=== PATIENT | female | born 1940 | race Asian ===

== ENCOUNTER 2016-11-13 13:01 | Outpatient (CLI) | payer MEDICARE, OTHER | END 2016-11-13 13:02 | disposition home or self-care (01) | DX: I67.82 Cerebral ischemia (principal); G44.89 Other headache syndrome; G31.9 Degenerative disease of nervous system, unspecified ==

== ENCOUNTER 2016-11-30 11:47 | Outpatient (CLI) | payer MEDICARE, OTHER | END 2016-11-30 11:48 | disposition home or self-care (01) | DX: Z12.31 Encounter for screening mammogram for malignant neoplasm of breast (principal) ==

== ENCOUNTER 2017-03-29 12:15 | Outpatient (CLI) | payer MEDICARE, OTHER ==
--- NOTE | 2017-03-30 07:33 | XRAY Report ---
LUMBAR SPINE, THREE VIEWS: 03/29/2017 CLINICAL HISTORY: Intermittent pain. Patient had back surgery 10 years ago. FINDINGS: Mild vascular calcification is noted in the abdominal aorta. Prominent anterior spurring with bridging osteophytes are seen in the lumbar spine and lower T-spine. Mild disk space narrowing is noted at L1-2 and L4-5. Mild disk space narrowing is noted at L5-S1. Mild narrowing is seen in the SI joints. No significant change is seen as compared to 07/30/2010. IMPRESSION: 1. NO SIGNIFICANT CHANGE IS NOTED COMPARED TO 07/30/2010 WITH A MODERATE DEGREE OF OSTEOARTHRITIS NOTED IN THE LUMBAR SPINE ONCE AGAIN SEEN. 2. MILD OSTEOARTHRITIS IS NOTED IN THE SI JOINTS. JOB #: [id number] EXT JOB #:[id number]
== END 2017-03-29 12:16 | disposition home or self-care (01) ==
LOC: DI 12:15
PROVIDERS: ATTEND Internal Medicine
DX: M47.896 Other spondylosis, lumbar region (principal); M47.898 Other spondylosis, sacral and sacrococcygeal region
CPT/HCPCS: 72100

== ENCOUNTER 2017-12-13 14:05 | Outpatient (CLI) | payer MEDICARE, OTHER ==
--- NOTE | 2017-12-14 09:59 | Mammography Report ---
DIGITAL SCREENING MAMMOGRAM: 12/13/2017 COMPARISON: 11/30/2016, 08/07/2015, 08/15/2013, and 09/03/2011. TECHNIQUE: Bilateral CC and MLO projections were obtained of the breasts. FINDINGS: There are scattered fibroglandular densities. There is no dominant mass, architectural distortion, skin thickening, suspicious clustered microcalcifications, or obvious interval change. IMPRESSION: NEGATIVE. BIRADS CATEGORY 1 - NEGATIVE. SUGGEST RETURN TO ROUTINE SCREENING IN 12 MONTHS. STANDARD QUALIFYING STATEMENTS: 1. This examination was reviewed with the aid of Computed-Aided Detection (CAD) . 2. A negative or benign imaging report should not delay biopsy if clinically suspicious findings are present. Consider surgical consultation if warranted. More than 5 % of cancers are not identified by imaging. 3. Dense breasts may obscure an underlying neoplasm. TD: 12/14/2017 09:58 JEANA
== END 2017-12-13 14:06 | disposition home or self-care (01) ==
LOC: DI 14:05
PROVIDERS: ATTEND Internal Medicine
DX: Z12.31 Encounter for screening mammogram for malignant neoplasm of breast (principal)
CPT/HCPCS: 77067

== ENCOUNTER 2018-04-28 09:42 | Outpatient (CLI) | payer MEDICARE, OTHER ==
--- NOTE | 2018-04-28 11:26 | XRAY Report ---
Procedure Date: 04/28/2018 Accession Number: [id number] / [id number] Procedure: XR - Thoracic Spine 2 View CPT Code: FULL RESULT: EXAM: THORACIC SPINE RADIOGRAPHY EXAM DATE: 04/28/2018 10:20 AM. CLINICAL HISTORY: BACKACHE LOWER/HTN. COMPARISON: None. TECHNIQUE: 2 views. FINDINGS: Alignment: Normal. No spondylolisthesis or scoliosis. Bones: No fractures or bone lesions. Disks: Scattered diffuse osteophytes Soft Tissues: Normal. The visualized lungs and cardiomediastinal silhouette are normal. IMPRESSION: Moderate DJD RADIA
--- NOTE | 2018-04-28 11:31 | XRAY Report ---
Procedure Date: 04/28/2018 Accession Number: [id number] / [id number] Procedure: XR - Chest 2 View X-Ray CPT Code: 85651 FULL RESULT: EXAM: CHEST RADIOGRAPHY EXAM DATE: 04/28/2018 10:20 AM. CLINICAL HISTORY: Back pain COMPARISON: None. TECHNIQUE: 2 views. FINDINGS: Lungs/Pleura: No focal opacities evident. No pleural effusion. No pneumothorax. Normal volumes. Mediastinum: Normal heart size. There is thoracic aortic calcification. Mild tortuosity. Other: None. IMPRESSION: No acute intrathoracic plain film abnormality. RADIA
--- NOTE | 2018-04-28 11:33 | XRAY Report ---
Procedure Date: 04/28/2018 Accession Number: [id number] / [id number] Procedure: XR - Lumbar Spine 2 View CPT Code: FULL RESULT: EXAM: LUMBOSACRAL SPINE RADIOGRAPHY EXAM DATE: 04/28/2018 10:20 AM. CLINICAL HISTORY: BACKACHE LOWER/HTN. COMPARISONS: None. TECHNIQUE: 3 views. FINDINGS: Alignment: Normal. No spondylolisthesis or scoliosis. Bones: Five cbq-ibo-[id number] lumbar vertebral bodies are present. Anterior wedging L1, L2, L3, L4. Disks: Osteophyte formation diffusely. At L4-L5, L5-S1 disk space narrowing. Facets: L4-L5, L5-S1 facet arthropathy. Sacroiliac Joints: Unremarkable. Soft Tissues: Normal. The visualized bowel gas pattern is normal. IMPRESSION: 1. Anterior compressions of L1-L4. 2. Moderate to severe DJD RADIA
--- NOTE | 2018-04-28 16:33 | Ultrasound Report ---
Procedure Date: 04/28/2018 Accession Number: [id number] / [id number] Procedure: US - Aorta Screening CPT Code: FULL RESULT: EXAM: AORTIC DOPPLER ULTRASOUND EXAM DATE: 04/28/2018 10:54 AM. CLINICAL HISTORY: Hypertension. COMPARISON: None. TECHNIQUE: Real-time sonographic imaging of retroperitoneal vascular structures, including color-flow, Doppler flow and spectral analysis was performed by the campground cleaning attendant. Multiple sales utility representative static images were saved for review. FINDINGS: Aorta: The abdominal aorta was adequately visualized. No evidence for abdominal aortic aneurysm. Aorta: Proximal: Sagittal PA: 2.7 cm. Mid: Transverse: 2.4 x 2.6 cm. Distal: Transverse: 1.5 x 1.5 cm. Caliber WNL: Yes. Iliacs: Right Iliac: Transverse: 1.1 x 1.1 cm. Left Iliac: Transverse: 1.2 x 1.3 cm. Iliac Vessels: The visualized proximal common iliac arteries are normal in caliber. Other: None. IMPRESSION: Normal. No abdominal aortic aneurysm. RADIA
== END 2018-04-28 09:43 | disposition home or self-care (01) ==
LOC: DI 09:42
PROVIDERS: ATTEND Internal Medicine
DX: I10 Essential (primary) hypertension (principal); M47.896 Other spondylosis, lumbar region; M48.56XA Collapsed vertebra, not elsewhere classified, lumbar region, initial encounter for fracture; M47.894 Other spondylosis, thoracic region
CPT/HCPCS: 71046; 72070; 72100; 76706

== ENCOUNTER 2018-10-28 09:55 | Outpatient (CLI) | payer MEDICARE, OTHER ==
--- NOTE | 2018-10-28 11:41 | CT Report ---
Reason: MEMORY IMPAIRMENT Procedure Date: 10/28/2018 Accession Number: [id number] / [id number] Procedure: CT - Head W/O CPT Code: FULL RESULT: EXAM: CT HEAD EXAM DATE: 10/28/2018 10:57 AM. CLINICAL HISTORY: MEMORY IMPAIRMENT. COMPARISON: None. TECHNIQUE: Multiaxial CT images were obtained from the foramen magnum to the vertex. Reformats: Sagittal and coronal. IV contrast: None. In accordance with CT protocol optimization, one or more of the following dose reduction techniques were utilized for this exam: automated exposure control, adjustment of mA and/or KV based on patient size, or use of iterative reconstructive technique. FINDINGS: Parenchyma: No intraparenchymal hemorrhage. No evidence of mass, midline shift, or CT findings of acute infarction. Hagen-white differentiation is distinct. Diffuse chronic microangiopathic white matter changes are evident. Extraaxial Spaces: Normal for age. No subdural or epidural collections identified. Ventricles: The ventricles and cortical sulci are enlarged, consistent with age-related tissue loss. Sinuses and orbits: Imaged paranasal sinuses, orbits, and mastoids show no significant abnormality. Bones: No evidence of fracture or calvarial defect. Other: None. IMPRESSION: Generalized age-related chronic changes without evidence of acute intracranial abnormality. RADIA
== END 2018-10-28 09:56 | disposition home or self-care (01) ==
LOC: LAB 09:55 → DI 09:56
PROVIDERS: ATTEND Internal Medicine
DX: R41.3 Other amnesia (principal)
CPT/HCPCS: 36415; 70450; 82565

== ENCOUNTER 2019-01-20 14:01 | Outpatient (CLI) | payer MEDICARE, OTHER ==
--- NOTE | 2019-01-24 14:27 | DEXA Report ---
Reason: DISORDER OF BONE, UNSPECIFIED Procedure Date: 01/20/2019 Accession Number: [id number] / [id number] Procedure: DEX - Dexa Spine and/or Hip CPT Code: FULL RESULT: EXAM: Dexa Spine and/or Hip DATE: 01/20/2019 2:31 PM CLINICAL HISTORY: DISORDER OF BONE, UNSPECIFIED TECHNIQUE: Dual energy x-ray absorptiometry (DXA) was performed on a [employer] System. Regions measured are the AP Spine, femoral neck, and if needed forearm. COMPARISON: None. In accordance with the International Society for Clinical Densitometry (ISCD) guidelines, data from previous exams may be reanalyzed using current recommendations and techniques. This is done to allow a more accurate basis for comparison with the current study. FINDINGS: The data for the lumbar spine is as follows: BMD (g/cm/cm) T-SCORE Z-SCORE REGION L1 1.327 1.6 3.6 L2 1.302 0.9 2.8 L3 1.354 1.3 3.3 L4 1.448 2.1 4.0 TOTAL 1.365 1.5 3.5 NOTE: All evaluable vertebrae are used for classification The data for the hip is as follows: BMD (g/cm/cm) T-SCORE Z-SCORE REGION Neck 0.943 -0.7 1.6 TOTAL 1.072 0.5 2.7 NOTE: The femoral neck or total proximal femur, whichever is lowest, is used for classification. DXA RESULTS SUMMARY: Spine SCAN DATE A[age] BMD CHANGE VS CHANGE VS PREVIOUS PREVIOUS % [birth year][age]20/2019 [age] 1.365 -0.079* -5.5* [birth year]2016 [age] 1[age]444 * Denotes significant change at the 95% confidence level. Denotes dissimilar scan types or analysis methods. DXA RESULTS SUMMARY: Hip SCAN DATE AGE BMD CHANGE VS CHANGE VS PREVIOUS PREVIOUS % [birth year][age][birth year]2019 [age] 1.072 -0.043* -3.9* [birth year]2016 [age] 1.115 * Denotes significant change at the 95% confidence level. Denotes dissimilar scan types or analysis methods. IMPRESSION: THE WHO CLASSIFICATION BASED ON THE INTERNATIONAL REFERENCE STANDARD IS NORMAL. THE FRACTURE RISK IS NOT INCREASED. RECOMMENDATION: Patients with diagnosis of osteoporosis or osteopenia should have regular bone mineral density assessment. For those eligible for Medicare, routine testing is allowed once every 2 years. Testing frequency can be increased for patients who have rapidly progressing disease or for those who are receiving medical therapy to restore bone mass. COMMENT: World Health Organization (WHO) definitions for osteoporosis and osteopenia: NORMAL BMD: T-score at -1.0 or higher, fracture risk is low OSTEOPENIA BMD: T-score between -1.0 and -2.5, fracture risk is increased. OSTEOPOROSIS BMD: T-score at -2.5 or lower, fracture risk is high. National Osteoporosis Foundation recommends: 1. Obtain adequate dietary calcium (at least 1200 mg per day) and vitamin D (400-800 international units per day). 2. Participate, as appropriate, in regular weightbearing and muscle-strengthening exercise. 3. Avoid tobacco use and reduce alcohol and caffeine intake. 4. For more detailed information see the website at www.NOF.org.
== END 2019-01-20 14:02 | disposition home or self-care (01) ==
LOC: DI 14:01
PROVIDERS: ATTEND Internal Medicine
DX: M85.80 Other specified disorders of bone density and structure, unspecified site (principal); M89.9 Disorder of bone, unspecified
CPT/HCPCS: 77080

== ENCOUNTER 2019-01-20 14:03 | Outpatient (CLI) | payer MEDICARE, OTHER ==
--- NOTE | 2019-01-23 09:27 | Mammography Report ---
Reason: ANNUAL SCREENING Procedure Date: 01/20/2019 Accession Number: [id number] / [id number] Procedure: [facility] - Screening Mammo Dig Bilat CPT Code: FULL RESULT: EXAM: Screening Mammo Dig Bilat DATE: 01/20/2019 3:16 PM CLINICAL HISTORY: Routine screening. No reported personal history of breast cancer. Family history breast cancer in daughter age 64. TECHNIQUE: (B) - Bilateral CC and MLO views were obtained. COMPARISON: None PARENCHYMAL PATTERN: (A) - The breasts demonstrate scattered fibroglandular densities bilaterally. FINDINGS: Bilateral breasts There are no suspicious masses, calcifications, or areas of distortion. IMPRESSION: Negative examination. BI-RADS category 1. RECOMMENDATION: (ANNUAL) - Recommend routine annual screening mammography. BI-RADS CATEGORY: (1) - Negative. STANDARD QUALIFYING STATEMENTS: 1. This examination was not reviewed with the aid of Computer-Aided Detection (CAD). 2. A negative or benign imaging report should not preclude biopsy if clinically suspicious findings are present. 3. Dense breasts may obscure an underlying neoplasm. 4. This examination was reviewed without the aid of 3D breast imaging (tomosynthesis).
== END 2019-01-20 14:04 | disposition home or self-care (01) ==
LOC: DI 14:03
PROVIDERS: ATTEND Internal Medicine
DX: Z12.31 Encounter for screening mammogram for malignant neoplasm of breast (principal); Z80.3 Family history of malignant neoplasm of breast
CPT/HCPCS: 77067

== ENCOUNTER 2019-06-08 12:57 | Outpatient (CLI) | payer MEDICARE, OTHER | END 2019-06-08 12:58 | disposition home or self-care (01) | LOC: RT 12:57 | PROVIDERS: ATTEND Internal Medicine | DX: J45.998 Other asthma (principal) | CPT/HCPCS: 94010 ==

== ENCOUNTER 2019-06-12 14:40 | Outpatient (CLI) | payer MEDICARE, OTHER ==
--- NOTE | 2019-06-12 15:10 | XRAY Report ---
Reason: ASTHMA Procedure Date: 06/12/2019 Accession Number: [id number] / [id number] Procedure: XRN - Chest 2 View X-Ray CPT Code: 78690 FULL RESULT: EXAM: CHEST RADIOGRAPHY EXAM DATE: 06/12/2019 02:53 PM. CLINICAL HISTORY: ASTHMA. COMPARISON: CHEST 2 VIEW 04/28/2018 9:57 AM. TECHNIQUE: 2 views. FINDINGS: Lungs/Pleura: No focal opacities evident. No pleural effusion. No pneumothorax. Normal volumes. No hyperinflation. No change. Mediastinum: Heart and mediastinal contours are unremarkable. Other: None. IMPRESSION: Normal examination with no significant change. No evidence of hyperinflation or pneumonia. RADIA
== END 2019-06-12 14:41 | disposition home or self-care (01) ==
LOC: DI.N 14:40
PROVIDERS: ATTEND Internal Medicine
DX: J45.998 Other asthma (principal)
CPT/HCPCS: 71046

== ENCOUNTER 2019-09-12 10:38 | Outpatient (CLI) | payer MEDICARE, OTHER ==
--- NOTE | 2019-09-12 11:44 | CT Report ---
Reason: PAIN IN JOINT, LOW BACK PAIN, HEADACHES Procedure Date: 09/12/2019 Accession Number: [id number] / [id number] Procedure: CT - CERVICAL SPINE WO CPT Code: Final Report FULL RESULT: EXAM: CT CERVICAL SPINE WITHOUT CONTRAST DATE: 09/12/2019 11:03 AM. HISTORY: Pain in joint, low back pain, headaches. COMPARISONS: LUMBAR SPINE W/O 09/12/2019 10:53 AM LUMBAR SPINE 2 VIEW 04/28/2018 9:57 AM images and report from [facility]. TECHNIQUE: Thin-section axial images were acquired of the cervical spine without contrast. Post-processing: Coronal and sagittal reformats. Other: None. In accordance with CT protocol optimization, one or more of the following dose reduction techniques were utilized for this exam: automated exposure control, adjustment of mA and/or KV based on patient size, or use of iterative reconstructive technique. FINDINGS: Alignment: There is reversal of the normal cervical lordotic curvature. No fractures. Bones: Osteopenic changes. Some calcification of the posterior longitudinal ligament is noted. Interspace Levels/Facets: C1-C2: Some osteoarthritic changes are seen anteriorly. No stenosis. C2-C3: Disk osteophyte complex calcification. No stenosis. C3-C4: Some disk osteophyte complex calcification. Series 5 image 46. No stenosis. C4-C5: Disk space height loss, broad-based disk bulge. Prominent facets. Mild central stenosis, mild left foraminal stenosis. C5-C6: Disk space height loss, marginal arthrosis is present, broad-based disk bulge. Calcification of posterior longitudinal ligament. Mild central stenosis. AP diameter of the bony canal is 8.6 mm. C6-C7: Disk space height loss, marginal arthrosis. Hypertrophic left facet. Old. C7-T1: Unremarkable. Musculature: Normal. No fatty atrophy. Other: The paravertebral and prevertebral soft tissues are unremarkable. The lung apices are clear. IMPRESSION: 1. No fractures. Some reversal of the normal cervical lordotic curvature is seen. 2. C4-C5 shows a broad-based disk bulge and mild central stenosis. Mild left foraminal stenosis. 3. C5-C6 shows disk space height loss and marginal arthrosis. Broad-based disk bulge. Mild central stenosis. Neural foramina are normal. 4. C6-C7 shows mild disk space height loss, no stenosis. RADIA
--- NOTE | 2019-09-12 12:16 | CT Report ---
Reason: PAIN IN JOINT, LOW BACK PAIN, HEADACHES Procedure Date: 09/12/2019 Accession Number: [id number] / [id number] Procedure: CT - LUMBAR SPINE WO CPT Code: Final Report FULL RESULT: EXAM: CT LUMBAR SPINE WITHOUT CONTRAST EXAM DATE: 09/12/2019 11:03 AM. CLINICAL HISTORY: Pain in joint, low back pain, headaches. COMPARISONS: LUMBAR SPINE 2 VIEW 04/28/2018 9:57 AM LUMBAR SPINE 2 VIEW 03/29/2017 12:31 PM. TECHNIQUE: Thin-section axial images were acquired of the lumbar spine from T12 to S1 without contrast. Post-processing: Coronal and sagittal reformats. Other: None. In accordance with CT protocol optimization, one or more of the following dose reduction techniques were utilized for this exam: automated exposure control, adjustment of mA and/or KV based on patient size, or use of iterative reconstructive technique. FINDINGS: Alignment: No scoliosis or spondylolisthesis. Bones: Five jle-osx-ugvmnpu lumbar vertebral bodies are present. No fractures or bone lesions. Disk Levels/Facets: T12-L1: Disk space height loss, some calcification of the right disk margin. Mild right lateral central stenosis. Prominent facets. No foraminal narrowing. L1-L2: Large calcified disk extrusion centrally. Series 3 image 50. Significant mass effect on the central canal. The AP diameter from the posterior aspect of the lamina into the calcified disk is 6 mm. Severe central stenosis. No foraminal stenosis. L2-L3: Circumferential disk calcification, broad-based bulge and prominent facets. Moderate central stenosis. Moderate bilateral foraminal stenosis. L3-L4: Circumferential disk space height loss and marginal calcification. Previous undersurface left hemilaminotomy. Series 4 image 91. Moderate central stenosis. Mild to moderate bilateral foraminal stenosis. L4-L5: Focal left paracentral disk extrusion is calcified, with moderate to severe central stenosis. Series 3 image 106. There is severe bilateral foraminal stenosis also seen. Prominent facets. L5-S1: Some disk calcification posteriorly. No central stenosis. Mild bilateral foraminal stenosis. Musculature: Moderate fatty atrophy of the multifidus muscle is seen. Other: The visualized retroperitoneum is unremarkable. IMPRESSION: 1. No scoliosis or listhesis. No fractures. Moderate fatty atrophy of the multifidus muscle is present. 2. T12-L1 shows mild right lateral central stenosis secondary to some calcification of the disk margin. No foraminal stenosis. 3. L1-L2 shows a large central calcified disk extrusion creating severe central stenosis. No foraminal stenosis. 4. L2-L3 shows circumferential disk calcification and moderate central stenosis and moderate bilateral foraminal stenosis. 5. L3-L4 shows circumferential disk space height loss, previous undersurface left hemilaminotomy. Moderate central stenosis and mild to moderate bilateral foraminal stenosis. 6. L4-L5 shows a focal left paracentral calcified disk extrusion. Moderate to severe central stenosis. Severe bilateral foraminal stenosis. 7. L5-S1 shows some disk calcification. No central stenosis and mild bilateral foraminal stenosis. RADIA
--- NOTE | 2019-09-12 12:16 | CT Report ---
Reason: PAIN IN JOINT, LOW BACK PAIN, HEADACHES Procedure Date: 09/12/2019 Accession Number: [id number] / [id number] Procedure: CT - THORACIC SPINE WO CPT Code: Final Report FULL RESULT: EXAM: CT THORACIC SPINE WITHOUT CONTRAST EXAM DATE: 09/12/2019 11:03 AM. CLINICAL HISTORY: Pain in joint, low back pain, headaches. COMPARISONS: None. TECHNIQUE: Thin-section axial images were acquired of the thoracic spine from C7 to L1 without contrast. Post-processing: Coronal and sagittal reformats. Other: None. In accordance with CT protocol optimization, one or more of the following dose reduction techniques were utilized for this exam: automated exposure control, adjustment of mA and/or KV based on patient size, or use of iterative reconstructive technique. FINDINGS: Alignment: 9 degrees of dextroscoliosis between T3-T4 and T11-T12. No listhesis. Bones: No fracture or bone lesion. Disk Levels/Facets: Multilevel disk space height loss throughout. C7-T1: Unremarkable. T1-T2: Unremarkable. T2-T3: Unremarkable. T3-T4: Unremarkable. T4-T5: Unremarkable. T5-T6: Unremarkable. T6-T7: Unremarkable. T7-T8: Unremarkable. T8-T9: Some calcification of the posterior disk bulge. No central stenosis or foraminal stenosis. T9-T10: Broad-based disk bulge with some calcification. Mild central stenosis and mild bilateral foraminal stenosis. T10-T11: Calcification of a right-sided disk protrusion/extrusion. Mild to moderate central stenosis. No foraminal stenosis. T11-T12: Unremarkable. T12-L1: Right-sided annular tear and focal calcification of the disk osteophyte complex. Moderate right foraminal stenosis. Left neural foramina and central canal are normal. Musculature: Mild fatty atrophy of the multifidus muscle is seen. Other: None. IMPRESSION: 1. 9 degrees of dextroscoliosis between T3-T4 and T11-T12. No listhesis. Multilevel disk space height loss throughout. No fractures. 2. T8-T9 shows some calcification posterior disk bulge. No central or foraminal stenosis. 3. T9-T10 shows a broad based disk bulge with calcification and mild central stenosis and mild bilateral foraminal stenosis. 4. T10-T11 shows a right-sided disk protrusion/extrusion which is calcified. Mild to moderate central stenosis. No foraminal narrowing. 5. T12-L1 shows a right-sided annular tear and focal calcification creating moderate right foraminal stenosis. Left neural foramina is normal. Central canal also normal. RADIA
== END 2019-09-12 10:39 | disposition home or self-care (01) ==
LOC: DI 10:38
PROVIDERS: ATTEND Internal Medicine
DX: M50.321 Other cervical disc degeneration at C4-C5 level (principal); M48.02 Spinal stenosis, cervical region; M47.812 Spondylosis without myelopathy or radiculopathy, cervical region; M51.26 Other intervertebral disc displacement, lumbar region; M51.35 Other intervertebral disc degeneration, thoracolumbar region; M48.061 Spinal stenosis, lumbar region without neurogenic claudication; M51.36 Other intervertebral disc degeneration, lumbar region; M51.34 Other intervertebral disc degeneration, thoracic region; M48.04 Spinal stenosis, thoracic region
CPT/HCPCS: 72125; 72128; 72131

== ENCOUNTER 2020-02-14 01:50 | Emergency (ER) | payer MEDICARE, OTHER ==
--- NOTE | 2020-02-14 01:51 | ED Physician Documentation ---
History of Present Illness - Stated complaint Stated Complaint: ABD PX/NECK PX - History obtained from History obtained from: Patient, Family (Female who presents with her with a chief complaint plaint to include abdominal pain, constipation, some shortness of breath and myalgias to include neck muscle spasms. The patient and her spouse report that she has had similar symptoms off and on for the last year but they became progressively worse tonight so he brought her in for further evaluation the patient spouse did try treating her for constipation with MiraLAX as well as a fleets enema however tonight she was complaining of worsening abdominal pain and was brought to the ER for evaluation.Fevers and headaches are denied.) Review of Systems Constitutional: reports: Myalgias Eyes: reports: Reviewed and negative Ears: reports: Reviewed and negative Nose: reports: Reviewed and negative Throat: reports: Reviewed and negative Cardiac: reports: Reviewed and negative Respiratory: reports: Dyspnea GI: reports: Abdominal Pain, Constipation : reports: Reviewed and negative Skin: reports: Reviewed and negative Musculoskeletal: reports: Reviewed and negative Neurologic: reports: Reviewed and negative Psychiatric: reports: Reviewed and negative Endocrine: reports: Reviewed and negative Immunocompromised: reports: Reviewed and negative PD PAST MEDICAL HISTORY - Past Medical History Cardiovascular: Hypertension, High cholesterol - Past Surgical History 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 - Present Medications Home Medications: Ambulatory Orders Medication Instructions Recorded Confirmed Aspirin [Aspir 81] 81 mg PO DAILY 08/13/13 08/13/13 Cholecalciferol (Vitamin D3) 2,000 unit PO DAILY 08/13/13 08/13/13 [Vitamin D] Hydrochlorothiazide 25 mg PO DAILY 08/13/13 08/13/13 Lisinopril 10 mg PO BID 08/13/13 08/13/13 Wali Red 08/13/13 08/13/13 Montelukast Sodium [Singulair] 10 mg PO DAILY 08/13/13 08/13/13 Multivitamin [Animal Chews] 1 each PO 08/13/13 08/13/13 diazePAM [Valium] 5 mg PO TID PRN #7 tablet 02/14/20 - Allergies Allergies/Adverse Reactions: Allergies Allergy/AdvReac Type Severity Reaction Status Date / Time doxycycline Allergy Severe unknown Verified 08/13/13 11:50 niacin Allergy Intermediate unknown Verified 08/13/13 11:50 [From Niaspan Extended-Release] - Social History Does the pt smoke?: No Smoking Status: Never smoker Does the pt drink ETOH?: No Does the pt have substance abuse?: No - Immunizations Immunizations are current?: Yes PD ED PE NORMAL - Vitals Vital signs reviewed: Yes - General General: Alert and oriented X 3, No acute distress, Well developed/nourished - HEENT HEENT: Atraumatic, PERRL, Moist mucous membranes, Pharynx benign - Neck Neck: Supple, no meningeal sign, No bony TTP, No adenopathy, Thyroid normal, No JVD, No bruit, Other (Muscle spasms noted in bilateral posterior cervical paraspinal muscles. No midline tenderness to palpation no midline step-offs or deformities no meningeal signs) - Cardiac Cardiac: RRR, No murmur - Respiratory Respiratory: Clear bilaterally - Abdomen Abdomen: Other (There is no midline abdominal pulsatile mass the abdomen soft its diffusely tender to palpation there is no ecchymosis no CVA tenderness there is diminished bowel sounds) - Back Back: No CVA TTP, No spinal TTP - Derm Derm: Normal color, Warm and dry, No rash - Extremities Extremities: No deformity, No tenderness to palpate, Normal ROM s pain, No edema, No calf tenderness / cord - Neuro Neuro: Alert and oriented X 3, 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, No motor deficit, No sensory deficit, Normal speech - Psych Psych: Normal mood, Normal affect Results - Vitals Vitals: Vital Signs - 24 hr 02/14/20 02/14/20 02:01 04:27 Temperature 36.5 C Heart Rate 75 66 Respiratory 18 16 Rate Blood Pressure 171/92 H 156/90 H O2 Saturation 100 100 Oxygen O2 Source Room air - EKG (time done) 02:44 Rate: Other (no stemi) - Labs Labs: Laboratory Tests 02/14/20 02/14/20 02/14/20 02:30 02:40 02:40 WBC 4.5 L RBC 3.26 L Hgb 10.9 L Hct 31.7 L MCV 97.2 MCH 33.4 H MCHC 34.4 RDW 12.3 Plt Count 195 MPV 9.0 Neut # (Auto) 2.9 Lymph # (Auto) 1.4 L [place] # (Auto) 0.2 Eos # (Auto) 0.0 Baso # (Auto) 0.0 Absolute Nucleated RBC 0.00 Nucleated RBC % 0.0 PT 11.4 INR 1.0 APTT 29.3 Sodium Potassium Chloride Carbon Dioxide Anion Gap BUN Creatinine Estimated GFR (MDRD) Glucose Lactic Acid Calcium Total Bilirubin AST ALT Alkaline Phosphatase Total Creatine Kinase Troponin I High Sens Total Protein Albumin Globulin Albumin/Globulin Ratio Lipase Urine Color YELLOW Urine Clarity CLEAR Urine pH 8.5 H Ur Specific [place] 1.015 Urine Protein TRACE Urine Glucose (UA) NEGATIVE Urine Ketones 15 H Urine Occult Blood TRACE-INTA Urine Nitrite NEGATIVE Urine Bilirubin NEGATIVE Urine Urobilinogen 0.2 (NORMAL) Ur Leukocyte Esterase NEGATIVE Ur Microscopic Review NOT INDICATED Urine Culture Comments NOT INDICATED 02/14/20 02/14/20 02/14/20 02:40 02:40 02:40 WBC RBC Hgb Hct MCV MCH MCHC RDW Plt Count MPV Neut # (Auto) Lymph # (Auto) [place] # (Auto) Eos # (Auto) Baso # (Auto) Absolute Nucleated RBC Nucleated RBC % PT INR APTT Sodium 127 L Potassium 3.7 Chloride 91 L Carbon Dioxide 24 Anion Gap 12.0 BUN 18 Creatinine 0.9 Estimated GFR (MDRD) 60 L Glucose 108 H Lactic Acid < 0.3 L Calcium 8.8 Total Bilirubin 0.5 AST 22 ALT 26 Alkaline Phosphatase 67 Total Creatine Kinase 124 Troponin I High Sens 4.7 Total Protein 7.6 Albumin 4.1 Globulin 3.5 Albumin/Globulin Ratio 1.2 Lipase 37 Urine Color Urine Clarity Urine pH Ur Specific [place] Urine Protein Urine Glucose (UA) Urine Ketones Urine Occult Blood Urine Nitrite Urine Bilirubin Urine Urobilinogen Ur Leukocyte Esterase Ur Microscopic Review Urine Culture Comments PD MEDICAL DECISION MAKING - ED course Complexity details: reviewed results, re-evaluated patient, considered differential (Diverticulitis AAA, constipation, obstruction, dehydration, acute kidney injury, ACS, Cystitis), d/w patient, d/w family (05:00 am Patient reexamined she is well-appearing and she has a steady gait clear speech chest x- ray shows possible infiltrate in either lingula or lower lobe of the left lung base patient denies any cough or shortness of breath or any wheezing her sodium is noted to be low at 127 which is new for her she is on a diuretic she does have good follow-up with his primary care provider today. I dad did have an extensive conversation with the patient and her spouse in regards to admission for inpatient evaluation versus outpatient observation and treatment ultimately is agreed upon that this patient will be discharged with close follow-up she is noted to have some cervical muscle spasms that was improved with low-dose Valium will provide her with a prescription for low-dose Valium for the next 1 to [address] scan of the abdomen and pelvis were also were ordered for this patient shows no acute abnormality identified) Departure - Departure Disposition: 01 Home, Self Care Clinical Impression: Hyponatremia, Muscle spasms of neck Constipation Qualifiers: Constipation type: unspecified constipation type Qualified Code(s): K59.00 - Constipation, unspecified Condition: Stable Instructions: Hyponatremia Dc, ED Spasm Muscle Follow-Up: Romy Singh MD [Primary Care Provider] - 02/14/20 Prescriptions: diazePAM [Valium] 5 mg PO TID PRN #7 tablet PRN Reason: Spasms Comments: Call your primary care provider today to schedule follow-up.
[2020-02-14] MEDS ORDERED: SODIUM CHLORIDE 0.9% 1,000 ML IV STA (02:38)
[2020-02-14] MEDS ORDERED: diazePAM INJ 5 MG/ML SYRINGE IVP STA (02:38)
[2020-02-14 02:48] LABS: BASOPHILS % (AUTO) 0.2 %; EOSINOPHILS % (AUTO) 0.4 %; HGB - HEMOGLOBIN 10.9 g/dL (12.0-16.0); LYMPHOCYTES # (AUTO) 1.4 10^3/uL (1.5-3.5); LYMPHOCYTES % (AUTO) 30.5 %; MEAN CORPUSCULAR HEMOGLOBIN 33.4 pg (27.0-31.0); MEAN CORPUSCULAR HGB CONC 34.4 g/dL (32.0-36.0); MEAN CORPUSCULAR VOLUME 97.2 fL (81.0-99.0); MONOCYTES # (AUTO) 0.2 10^3/uL (0.0-1.0); MONOCYTES % (AUTO) 4.9 %; NEUTROPHILS # (AUTO) 2.9 10^3/uL (1.5-6.6); NEUTROPHILS % (AUTO) 63.8 %; PLT - PLATELET COUNT 195 10^3/uL (130-450); RED BLOOD COUNT 3.26 10^6/uL (4.20-5.40); RED CELL DISTRIBUTION WIDTH 12.3 % (12.0-15.0); WHITE BLOOD COUNT 4.5 x10^3/uL (4.8-10.8)
[2020-02-14 02:52] LABS: BILIRUBIN,URINE NEGATIVE (NEGATIVE); CLARITY,URINE CLEAR (CLEAR); GLUCOSE, URINE (UA) NEGATIVE (NEGATIVE); KETONES,URINE (UA) 15 mg/dL (NEGATIVE); LEUKOCYTE ESTERASE, URINE NEGATIVE (NEGATIVE); NITRITE,URINE NEGATIVE (NEGATIVE); OCCULT BLOOD,URINE TRACE-INTA (NEGATIVE); PH,URINE 8.5 PH (5.0-7.5); PROTEIN,URINE TRACE mg/dL (NEGATIVE); UROBILINOGEN,URINE 0.2 (NORMAL) E.U./dL (NORMAL)
[2020-02-14] MEDS ORDERED: IOVERSOL 320 100 ML VIAL IVP ONE ×2 (02:52→03:52)
[2020-02-14 02:54] LABS: PT - PROTHROMBIN TIME 11.4 secs (9.9-12.6)
[2020-02-14 03:01] LABS: PARTIAL THROMBOPLASTIN TIME 29.3 secs (24.9-33.3)
[2020-02-14 03:03] LABS: ALBUMIN 4.1 g/dL (3.2-5.5); ALBUMIN/GLOBULIN RATIO 1.2 (1.0-2.2); BILIRUBIN,TOTAL 0.5 mg/dL (0.2-1.0); CALCIUM 8.8 mg/dL (8.5-10.3); CREATININE 0.9 mg/dL (0.4-1.0); TOTAL PROTEIN 7.6 g/dL (6.7-8.2)
[2020-02-14 05:52] VITALS: BP 155/92
--- NOTE | 2020-02-14 08:28 | XRAY Report ---
Reason: sob Procedure Date: 02/14/2020 Accession Number: [id number] / [id number] Procedure: XR - Chest 1 View X-Ray CPT Code: 42534 Final Report FULL RESULT: PROCEDURE: Chest 1 View X-Ray INDICATIONS: sob TECHNIQUE: One view of the chest was acquired. COMPARISON: 06/12/2019 FINDINGS: Surgical changes and devices: None. Lungs and pleura: There is loss of distinction along the lateral aspect of left hemidiaphragm new since previous study. No significant pleural effusion or pneumothorax. Right lung is clear. Mediastinum: Mediastinal contours appear normal. Heart size is normal. Bones and chest wall: No suspicious bony lesions. Overlying soft tissues appear unremarkable. IMPRESSION: Subtle opacity involving the lateral aspect of the left lung base which may represent trace pleural effusion/thickening versus small developing infiltrate. Clinical and radiographic follow-up is recommended. Agree with preliminary report. Reviewed by: Adalid Stone MD on 02/14/2020 8:26 AM PDT Approved by: Adalid Stone MD on 02/14/2020 8:26 AM PDT Station ID: [id number]
--- NOTE | 2020-02-14 09:10 | CT Report ---
Reason: abd pain Procedure Date: 02/14/2020 Accession Number: [id number] / [id number] Procedure: CT - Abdomen/Pelvis W CPT Code: Final Report FULL RESULT: PROCEDURE: Abdomen/Pelvis W INDICATIONS: abd pain CONTRAST: IV CONTRAST: Optiray 320 ml: *NO PO CONTRAST TECHNIQUE: After the administration of oral and intravenous contrast, 5 mm thick sections acquired from the diaphragms to the symphysis. 5 mm thick coronal and sagittal reformats were acquired. For radiation dose reduction, the following was used: automated exposure control, adjustment of mA and/or kV according to patient size. COMPARISON: None. FINDINGS: Image quality: Excellent. ABDOMEN: Lung bases: Bibasilar dependent atelectasis is seen. Heart size is normal. Solid organs: Liver and spleen are normal in size. 6 mm hypodensity involving left lobe of liver is seen and is too small to characterize. Normal enhancement of spleen is seen. Gallbladder is within normal limits. Biliary system is non dilated. Pancreas enhances normally. No adrenal nodules. Kidneys demonstrate normal size and enhancement, without hydronephrosis. Peritoneum and bowel: Bowel loops demonstrate normal wall thickness and caliber. No free fluid or air. There is mild fecal stasis in the colon. Nodes and vessels: No retroperitoneal or mesenteric adenopathy by size criteria. Aorta and inferior vena cava are normal in size. Extensive atherosclerotic disease throughout the abdominal aorta is seen. Miscellaneous: No ventral hernias. PELVIS: Genitourinary: Bladder wall thickness is normal. Miscellaneous: No inguinal hernias or adenopathy. Patient is status post hysterectomy. Bones: No suspicious bony lesions. No vertebral body compression fractures. Straightening of normal lumbar lordosis is seen with degenerative disc disease throughout visualized lower thoracic spine and lumbar spine. IMPRESSION: 1. Mild constipation. No bowel obstruction. No bowel wall thickening. No free fluid or free air. 2. Subtle 6 mm hypodensity in left lobe of liver likely represent benign process such as hepatic cyst or hemangioma. 3. Extensive atherosclerotic disease in the abdominal aorta. No abdominal aortic aneurysm or gross dissection. 4. Degenerative disc disease in lower thoracic spine and lumbar spine. Agree with the preliminary report. Reviewed by: Adalid Stone MD on 02/14/2020 9:08 AM PDT Approved by: Adalid Stone MD on 02/14/2020 9:08 AM PDT Station ID: [id number]
== END 2020-02-14 05:26 | disposition home or self-care (01) ==
LOC: ED 01:50
DX: E87.1 Hypo-osmolality and hyponatremia (principal); M62.838 Other muscle spasm; M54.2 Cervicalgia; K59.00 Constipation, unspecified; I10 Essential (primary) hypertension; Z79.82 Long term (current) use of aspirin
CPT/HCPCS: 36415; 71045; 74177; 80053; 81003; 82550; 83605; 83690; 84484; 85025; 85610; 85730; 93005; 96361; 96374; 99284; Q9967; 81001; 87086

== ENCOUNTER 2020-05-23 13:08 | Outpatient (CLI) | payer MEDICARE, OTHER | END 2020-05-23 13:09 | disposition home or self-care (01) | LOC: COV 13:08 | PROVIDERS: ATTEND Family Medicine | DX: R19.7 Diarrhea, unspecified (principal); Z20.828 Contact with and (suspected) exposure to other viral communicable diseases ==

== ENCOUNTER 2020-07-09 14:14 | Outpatient (CLI) | payer MEDICARE, OTHER ==
--- NOTE | 2020-07-09 16:55 | XRAY Report ---
PROCEDURE: Lumbar Spine 2 View INDICATIONS: LOW BACK PAIN TECHNIQUE: 2 views of the lumbar spine were acquired. COMPARISON: CT dated 09.12.19 FINDINGS: Bones: 5 [id number] vertebrae are present. There is mild, grade 1 retrolisthesis of L1 on L2, L2 on L3, L3 on L4, and L4 on L5. Facet hypertrophy throughout the mid and lower lumbar spine. No bebeto tebral body compression fractures. No suspicious bony lesions. Multilevel disc space narrowing and endplate osteophytes. Soft tissues: Overlying bowel gas pattern is normal. No suspicious soft tissue calcifications. IMPRESSION: Multilevel degenerative disc and facet disease. No acute fracture. No osseous lesion. If symptoms and/or clinical suspicion for pathology continue, further assessment with repeat plain film s, or advanced imaging (e.g., CT, MRI, or bone scan) is recommended for further assessment. Reviewed by: Gabriele Robbins MD on 07/09/2020 4:53 PM PDT Approved by: Gabriele Robbins MD on 07/09/2020 4:53 PM PDT Station ID: [id number]
== END 2020-07-09 14:15 | disposition home or self-care (01) ==
LOC: DI 14:14
PROVIDERS: ATTEND Internal Medicine
DX: M43.16 Spondylolisthesis, lumbar region (principal); M47.816 Spondylosis without myelopathy or radiculopathy, lumbar region; M51.36 Other intervertebral disc degeneration, lumbar region
CPT/HCPCS: 72100

== ENCOUNTER 2020-11-26 11:57 | Outpatient (CLI) | payer MEDICARE, OTHER ==
[2020-11-26] MEDS ORDERED: IOPAMIDOL-300 50 ML VIAL ONE (12:23)
[2020-11-26] MEDS ORDERED: IOVERSOL 320 100 ML VIAL IVP ONE (13:52)
[2020-11-26] MEDS ORDERED: IOPAMIDOL-300 50 ML VIAL PO ONE (13:56)
--- NOTE | 2020-11-26 17:41 | CT Report ---
PROCEDURE: Abdomen/Pelvis W INDICATIONS: ABD PAIN, EPICGASTRIC PAIN CONTRAST: IV CONTRAST: Optiray 320 ml: 100 PO CONTRAST: Isovue 300 ml50 TECHNIQUE: After the administration of weight appropriate dose of intravenous contrast, 5 mm thick sections acqu ired from the diaphragms to the symphysis. 5 mm thick coronal and sagittal reformats were acquired. For radiation dose reduction, the following was used: automated exposure control, adjustment of mA and/or kV according to patient size. COMPARISON: 02/14/2020. FINDINGS: Image quality: Excellent. ABDOMEN: Lung bases: Minimal bibasilar atelectasis.. Heart size is normal. Solid organs: Liver and spleen are normal in size and enhancement. Stable subcentimeter lateral segm ent left hepatic lobe hypodensity (image 17, series 3). Gallbladder appears partially decompressed. C omment bladder wall not well visualized and possibly thickened. This may be due to combination of inc omplete distention and motion artifact. There is persistent, stable mild prominence of the common colton e duct as well as the main pancreatic duct. Biliary system is non dilated. Pancreas enhances normal ly. No adrenal nodules. Kidneys demonstrate normal size and enhancement, without hydronephrosis. Peritoneum and bowel: Bowel loops demonstrate normal wall thickness and caliber. No free fluid or a ir. Moderate amount of fecal burden seen throughout the imaged colon. Nodes and vessels: No retroperitoneal or mesenteric adenopathy by size criteria. Aorta and inferior vena cava are normal in size. Extensive atherosclerotic calcifications of the abdominal aorta witho ut aneurysmal dilatation. Miscellaneous: No ventral hernias. PELVIS: Genitourinary: Bladder wall thickness is normal for degree of distention.. Miscellaneous: No inguinal hernias or adenopathy. Bones: No suspicious bony lesions. No acute vertebral body compression fractures. Moderate multile obi spondylosis of the imaged spine. IMPRESSION: 1. Moderate amount of fecal material seen throughout the imaged colon which may represent constipatio n. No evidence for obstruction. 2. Stable subcentimeter hypodensity in the lateral segment of the left hepatic lobe which again may r epresent a hepatic cyst versus hemangioma. 3. Partially decompressed gallbladder with suggestion of wall thickening which may be related to comb ination of patient motion artifact and incomplete distention. Recommend correlating for clinical symp toms of cholecystitis. Consider further evaluation with right upper quadrant ultrasound if there are clinical findings of acute cholecystitis. 4. Persistent, stable mild prominence of the common bile duct and main pancreatic duct. Recommend cor relation with laboratory evaluation. 5. Multilevel lumbar spondylosis. 6. Extensive atherosclerosis. Reviewed by: Aleksey Redd MD on 11/26/2020 5:40 PM PDT Approved by: Aleksey Redd MD on 11/26/2020 5:40 PM PDT Station ID: [id number]
== END 2020-11-26 11:58 | disposition home or self-care (01) ==
LOC: DI 11:57
PROVIDERS: ATTEND Internal Medicine
DX: R10.13 Epigastric pain (principal); M47.816 Spondylosis without myelopathy or radiculopathy, lumbar region
CPT/HCPCS: 74177; Q9967

== ENCOUNTER 2021-08-16 14:29 | Outpatient (CLI) | payer MEDICARE, OTHER ==
--- NOTE | 2021-08-16 19:15 | Ultrasound Report ---
PROCEDURE: Retroperitoneal INDICATIONS: RENAL INSUFFICIENCY TECHNIQUE: Real-time scanning was performed of the retroperitoneal organs, with image documentation. COMPARISON: CT abdomen pelvis 11/26/2020. FINDINGS: Evaluation limited due to bowel gas, body habitus, and patient difficulty with breath holds. Kidneys: Right kidney measures 10.0 cm long; left kidney measures 10.2 cm long. Right renal cortica l thickness is 1.3 cm; left renal cortical thickness is 1.1 cm. Renal cortex appears normal in echog enicity with preserved corticomedullary differentiation. No hydronephrosis. No definite renal mass id entified. Bladder: The urinary bladder was not visualized. Patient voided prior to the study. IMPRESSION: 1. No evidence of hydronephrosis. 2. Bilateral mild renal cortical thinning. Reviewed by: Brennon Herrera MD on 08/16/2021 6:14 PM [facility] Approved by: Brennon Herrera MD on 08/16/2021 6:14 PM [facility] Station ID: [id number]
== END 2021-08-16 14:30 | disposition home or self-care (01) ==
LOC: DI 14:29
PROVIDERS: ATTEND Urology
DX: N28.9 Disorder of kidney and ureter, unspecified (principal); N26.1 Atrophy of kidney (terminal)

== ENCOUNTER 2021-10-21 22:29 | Outpatient (CLI) | payer MEDICARE, OTHER | END 2021-10-21 22:30 | disposition short-term general hospital (02) | LOC: EMS 22:29 | DX: R47.81 Slurred speech (principal); R53.1 Weakness; R29.810 Facial weakness; R40.0 Somnolence | CPT/HCPCS: A0425; A0429 ==

== ENCOUNTER → 2022-08-16 | Outpatient (CLI) | payer MEDICARE, OTHER | END | disposition EMS.NT | LOC: EMS 13:48 | DX: Z03.89 Encounter for observation for other suspected diseases and conditions ruled out (principal) ==

== ENCOUNTER 2022-08-25 13:02 | Outpatient (CLI) | payer MEDICARE, OTHER ==
--- NOTE | 2022-08-26 11:55 | Mammography Report ---
BILATERAL DIGITAL SCREENING MAMMOGRAM: 08/25/2022 CLINICAL: Family history of breast cancer. Routine screening. Comparison is made to exams dated: 01/20/2019 mammogram, 12/13/2017 mammogram, 08/07/2015 mammogram, an d 08/15/2013 mammogram - [facility]. There are scattered areas of fibroglandular density in both breasts (category b / 25%-50% glandular t issue). There is new diffuse skin thickening and possible subtle diffuse trabecular thickening in both breast s. No significant masses, calcifications, or other findings are seen in either breast. Scattered vascul ar calcifications. IMPRESSION: INCOMPLETE: NEEDS ADDITIONAL IMAGING EVALUATION There is new diffuse skin thickening and possible subtle diffuse trabecular thickening in both breast s. Findings may be related to a systemic process such as pulmonary edema. Neoplastic etiology such as inflammatory carcinoma not completely excluded. Recommend clinical correlation and diagnostic mammog suzi with possible ultrasound. Based on the Tyrer Cuzick model (a risk assessment model) the patients lifetime risk is 0.3% and her 10 year risk is 0.0%. According to the ACR, ACS, and NCCN guidelines, an annual breast MRI exam rayne g with mammogram is recommended if the patients lifetime risk is 20% or greater. This exam was interpreted at Station ID: [id number]. NOTE: For mammograms, a report in lay terms will be sent to the patient. Approximately 15% of breast malignancies will not be visualized mammographically. In the management of a palpable breast mass, a negative mammogram must not discourage biopsy of a clinically suspicious lesion. Electronically Signed By: Aleksey Redd M.D. aty/:08/25/2022 19:35:59 ACR BI-RADS Category 0: Incomplete 3340F PARENCHYMAL PATTERN: (A) - The breast(s) demonstrate(s) scattered fibroglandular densities. BI-RADS CATEGORY: (0) - 0 Mammo and [place] [id number] Immediate follow-up LATERALITY: (B)
== END 2022-08-25 13:03 | disposition home or self-care (01) ==
LOC: DI.N 13:02
PROVIDERS: ATTEND Internal Medicine
DX: Z12.31 Encounter for screening mammogram for malignant neoplasm of breast (principal); R92.8 Other abnormal and inconclusive findings on diagnostic imaging of breast; Z80.3 Family history of malignant neoplasm of breast

== ENCOUNTER 2022-09-03 12:27 | Outpatient (CLI) | payer MEDICARE, OTHER ==
--- NOTE | 2022-09-09 10:42 | Mammography Report ---
BILATERAL DIGITAL DIAGNOSTIC MAMMOGRAM 3D/2D: 09/03/2022 CLINICAL: Patient returns to evaluate bilateral breast skin thickening. Comparison is made to exams dated: 08/25/2022 mammogram, 01/20/2019 mammogram, 12/13/2017 mammogram, mammogram, and 08/15/2013 mammogram - [facility]. There are scattered areas of fibroglandular density in both breasts (category b / 25%-50% glandular t issue). Bilateral breast skin thickening is unchanged. No mass, asymmetry, or architectural distortion. No zarco spicious microcalcifications. IMPRESSION: PROBABLY BENIGN Unchanged bilateral breast skin thickening and trabecular coarsening. This is likely reflective of a system process such as congestive heart failure. The likelihood of bilateral inflammatory breast canc er involving the skin with no mass is extremely low, however correlation with physical exam to exclud e redness or excoriation is requested. Correlation with BNP and history of other CHF symptoms is also requested. Punch biopsy could be performed if clinical suspicion is high based on the physical exam. Otherwise, return to annual screening recommended. Based on the Tyrer Cuzick model (a risk assessment model) the patients lifetime risk is 0.3% and her 10 year risk is 0.0%. According to the ACR, ACS, and NCCN guidelines, an annual breast MRI exam rayne g with mammogram is recommended if the patients lifetime risk is 20% or greater. This exam was interpreted at Station ID: [id number]. NOTE: For mammograms, a report in lay terms will be sent to the patient. Approximately 15% of breast malignancies will not be visualized mammographically. In the management of a palpable breast mass, a negative mammogram must not discourage biopsy of a clinically suspicious lesion. Electronically Signed By: Mark Zacarias M.D. jr/:09/03/2022 13:52:29 ACR BI-RADS Category 3: Probably benign 3343F PARENCHYMAL PATTERN: (A) - The breast(s) demonstrate(s) scattered fibroglandular densities. BI-RADS CATEGORY: (3) - 3 Unspecified - other [id number] return to screening LATERALITY: (B)
== END 2022-09-03 12:28 | disposition home or self-care (01) ==
LOC: DI 12:27
PROVIDERS: ATTEND Internal Medicine
DX: R92.8 Other abnormal and inconclusive findings on diagnostic imaging of breast (principal); R23.4 Changes in skin texture; N64.89 Other specified disorders of breast

== ENCOUNTER 2022-09-29 15:19 | Outpatient (CLI) | payer MEDICARE, OTHER ==
[2022-09-29 15:46] LABS: CALCIUM 8.8 mg/dL (8.5-10.3); CREATININE 1.5 mg/dL (0.4-1.0)
--- NOTE | 2022-09-29 20:27 | XRAY Report ---
PROCEDURE: Chest 2 View X-Ray INDICATIONS: EDEMA TECHNIQUE: 2 views of the chest were acquired. COMPARISON: CXR 02/14/2020. CT thoracic spine 09/12/2019. FINDINGS: Surgical changes and devices: Clips in the left upper quadrant. Lungs and pleura: No pleural effusions or pneumothorax. Lungs are clear. Mediastinum: Mediastinal contours are unchanged. Aorta appears prominent. Heart size is within norm al limits. Bones and chest wall: No suspicious bony abnormalities. Soft tissues appear unremarkable. IMPRESSION: No acute cardiopulmonary abnormality. Thoracic aortic aneurysm is similar on chest x-ray. Consider CT chest with IV contrast for further ev aluation. Reviewed by: Austin Serna MD on 09/29/2022 8:26 PM PST Approved by: Austin Serna MD on 09/29/2022 8:26 PM PST Station ID: [id number]
== END 2022-09-29 15:20 | disposition home or self-care (01) ==
LOC: DI 15:19
PROVIDERS: ATTEND Internal Medicine
DX: R60.9 Edema, unspecified (principal); G45.9 Transient cerebral ischemic attack, unspecified; I50.9 Heart failure, unspecified; D64.9 Anemia, unspecified; Z79.899 Other long term (current) drug therapy; I11.0 Hypertensive heart disease with heart failure
CPT/HCPCS: 36415; 80048; 83880

== ENCOUNTER 2022-09-29 15:21 | Outpatient (CLI) | payer MEDICARE, OTHER | END 2022-09-29 15:22 | disposition home or self-care (01) | LOC: RT 15:21 | PROVIDERS: ATTEND Internal Medicine | DX: I50.9 Heart failure, unspecified (principal); R60.9 Edema, unspecified; G45.9 Transient cerebral ischemic attack, unspecified | CPT/HCPCS: 93005 ==

== ENCOUNTER 2022-11-18 07:11 | Outpatient (CLI) | payer MEDICARE, OTHER ==
--- NOTE | 2022-11-18 12:53 | Ultrasound Report ---
PROCEDURE: Abdomen Complete INDICATIONS: LLQ ABD PAIN TECHNIQUE: Real-time scanning was performed of the abdominal and retroperitoneal organs, with image documentatio n. COMPARISON: None. FINDINGS: Liver: There is normal in size and echotexture. There is a left hepatic simple cyst measuring 1.1 cm. The main portal vein measures 0.9 cm in diameter Gallbladder: Sonolucent without gallbladder wall thickening or pericholecystic fluid Biliary ducts: Intrahepatic bile ducts are non-dilated. Extrahepatic bile duct caliber measures 6 m m. Normal is 6-7 mm or less in diameter, or 10 mm or less post-cholecystectomy. Pancreas: Visualized portions of the pancreas are sonographically normal. Spleen: Spleen is normal in size and homogeneous in echotexture. Kidneys: Kidneys are normal in size and echotexture. Right kidney measures 10.1 cm long; left kidne y measures 10.3 cm long. No hydronephrosis or nephrolithiasis. No solid masses. Aorta: Visualized aorta is normal in caliber at less than 3 cm. Iliacs: Proximal common iliac arteries are normal in caliber at less than 2.5 cm. IVC: Intrahepatic inferior vena cava is patent. Miscellaneous: No free abdominal fluid. IMPRESSION: Unremarkable ultrasound of the abdomen. Incidental small left hepatic simple cyst Reviewed by: Gregor Bowie MD on 11/18/2022 11:52 AM [facility] Approved by: Gregor Bowie MD on 11/18/2022 11:52 AM [facility] Station ID: [id number]
== END 2022-11-18 07:12 | disposition home or self-care (01) ==
LOC: DI 07:11
PROVIDERS: ATTEND Internal Medicine
DX: R10.32 Left lower quadrant pain (principal)

== ENCOUNTER 2022-12-15 13:17 | Emergency (ER) | payer MEDICARE, OTHER ==
--- NOTE | 2022-12-15 15:01 | CT Report ---
PROCEDURE: HEAD WO INDICATIONS: fall, head/neck pain TECHNIQUE: Noncontrast 4.5 mm thick angled axial sections acquired from the foramen magnum to the vertex. For r adiation dose reduction, the following was used: automated exposure control, adjustment of mA and/or kV according to patient size. COMPARISON: 10/28/2018 FINDINGS: Image quality: Good CSF spaces: Basal cisterns are patent. Lateral ventricles are symmetric. Volume: Vascular calcifications. Periventricular white matter disease is commonly seen with chronic m icroangiopathy. Volume loss is present. These findings are moderate. Brain: No intracranial hemorrhage. Hagen-white differentiation is grossly maintained. Craniofacial structures: No displaced fracture. Orbits are unremarkable. Right scalp soft tissue cont usion. Partially visualized prior sinusitis sequelae. IMPRESSION: No acute intracranial abnormality. Right scalp soft tissue contusion. Reviewed by: Ancelmo Loya MD on 12/15/2022 3:00 PM PDT Approved by: Ancelmo Loya MD on 12/15/2022 3:00 PM PDT Station ID: [id number]
--- NOTE | 2022-12-15 15:06 | ED Physician Documentation ---
PD HPI Fall - Stated complaint Stated Complaint: FALL/HIT HEAD - Chief complaint Chief Complaint: Neuro - History obtained from History obtained from: Patient, Family (spouse) - History of Present Illness Mechanism of injury: Tripped, Lost balance Fall distance: Standing position (her says the patient can lose blaance easily due to her Parkinsons type illness. She lost balance and tripped forward, striking right head on door framing. no loc. did subsequently complain of some numbness/weakness feeling right arm. concerned about brain injury/bleeding.) Where injury occurred: Home Timing - onset: Today Injury(ies) location: Head Associated symptoms: Weakness (right arm). 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 - Present Medications Home Medications: Ambulatory Orders Medication Instructions Recorded Confirmed Cholecalciferol (Vitamin D3) 2,000 unit PO DAILY 08/13/13 08/13/13 [Vitamin D] Wali Red 08/13/13 08/13/13 Montelukast Sodium [Singulair] 10 mg PO DAILY 08/13/13 08/13/13 Amlodipine Besylate [Norvasc] 04/18/20 Carbidopa/Levodopa 25/100 [Sinemet 04/18/20 25 mg/100 mg] Colesevelam HCl [Welchol] 04/18/20 Omeprazole 20 mg PO 04/18/20 Acetaminophen [Tylenol] 500 mg PO ONCE 12/15/22 12/15/22 Cholecalciferol (Vitamin D3) 12/15/22 [Vitamin D3] Hyoscyamine Sulfate [Levsin-Sl] 0.125 mg SL 12/15/22 Memantine [Namenda] 12/15/22 Rasagiline [Azilect] 1 mg PO 12/15/22 12/15/22 Spironolactone [Aldactone] 25 mg PO 12/15/22 hydroCHLOROthiazide 50 mg PO 12/15/22 [Hydrochlorothiazide] - Allergies Allergies/Adverse Reactions: Allergies Allergy/AdvReac Type Severity Reaction Status Date / Time doxycycline Allergy Severe unknown Verified 12/15/22 13:29 niacin Allergy Intermediate unknown Verified 12/15/22 13:29 [From Niaspan Extended-Release] - Social History Does the pt smoke?: No Smoking Status: Never smoker Does the pt drink ETOH?: No Does the pt have substance abuse?: No - Immunizations Immunizations are current?: Yes PD ED PE NORMAL - Vitals Vital signs reviewed: Yes - General General: Alert and oriented X 3, Well developed/nourished, Other (slightly limited as she speaks more estonian than trinidadian, but still able to communicate adequately with . ) - HEENT HEENT: Other (right scalp with some local swelling and tenderness. ) - Neck Neck: Supple, no meningeal sign, No bony TTP - Respiratory Respiratory: Clear bilaterally, Other (no chestwall tenderness) - Abdomen Abdomen: Soft, Non tender - Derm Derm: Normal color, Warm and dry - Extremities Extremities: Normal ROM s pain (somewhat stiff movements, but able to have rom of arms/shoulders/legs and is ambulatory without pain. ) - Neuro Neuro: No motor deficit, No sensory deficit Results - Vitals Vitals: Vital Signs - 24 hr 12/15/22 12/15/22 13:22 15:21 Temperature 36.8 C Heart Rate 85 71 Respiratory 14 14 Rate Blood Pressure 134/88 H 157/96 H O2 Saturation 100 99 Oxygen O2 Source Room air - Rads (name of study) head CT Relevant Findings:: Prelim report reviewed, EMP independent interpretation of test (no ICH nor acute findings. ), See rad report No standard instances Relevant Findings:: Prelim report reviewed (multilevel degenerative changes; no fractures. ), EMP independent interpretation of test, See rad report PD Medical Decision Making - ED course Complexity details: considered differential (fell and struck head on doorjam. not forceful injury but some head pain and had some right arm pain/weakness following. can be concerned about ich causing some effect on motor. can get ct. ), d/w patient, d/w family (spouse) Departure - Departure Disposition: 01 Home, Self Care Clinical Impression: Accidental fall Qualifiers: Encounter type: initial encounter Qualified Code(s): W19.XXXA - Unspecified fall, initial encounter Head contusion Qualifiers: Encounter type: initial encounter Contusion of head detail: scalp Qualified Code(s): S00.03XA - Contusion of scalp, initial encounter Condition: Stable Record reviewed to determine appropriate education?: Yes Follow-Up: Romy Singh MD [Primary Care Provider] - Comments: The head CT scan does not show any signs of bleeding, swelling, fractures within the brain compartment. The soft tissue swelling can be seen. The CT of the neck shows some arthritic changes but no obvious fractures. Continue with ice or cool towels to the scalp as needed for swelling. Tylenol every 4-6 hours if needed for pains. Continue other usual medicines. At this point there does not appear to be any significant injury from the fall. Activity as tolerated. Discharge Date/Time: 12/15/22 15:34
[2022-12-15] MEDS ORDERED: ACETAMINOPHEN 325 MG TABLET PO STA (15:12)
[2022-12-15 15:22] VITALS: BP 157/96
--- NOTE | 2022-12-15 15:24 | CT Report ---
PROCEDURE: CERVICAL SPINE WO INDICATIONS: fall, head/neck pain TECHNIQUE: Noncontrast 3 mm thick sections acquired from the skull base to the T4 level. Sagittal and coronal r eformats were then constructed. For radiation dose reduction, the following was used: automated exp osure control, adjustment of mA and/or kV according to patient size. COMPARISON: CT cervical spine 09/12/2019 FINDINGS: Image quality: Excellent. Bones: No fractures or dislocations. Visualized superior ribs are intact. Multilevel degenerative changes are present. There is trace retrolisthesis of C5 on C6. Soft tissues: Prevertebral soft tissues are normal in thickness. No paravertebral hematomas. No ap ical pneumothoraces. Punctate low-attenuation foci are present within the thyroid lobes. This is unc hanged. IMPRESSION: Multilevel degenerative changes of visualized fracture. Reviewed by: Oliva Loera MD on 12/15/2022 3:23 PM PDT Approved by: Oliva Loera MD on 12/15/2022 3:23 PM PDT Station ID: [id number]
== END 2022-12-15 15:34 | disposition home or self-care (01) ==
LOC: ED 13:17
DX: S00.03XA Contusion of scalp, initial encounter (principal); W18.39XA Other fall on same level, initial encounter; W22.09XA Striking against other stationary object, initial encounter; Y92.009 Unspecified place in unspecified non-institutional (private) residence as the place of occurrence of the external cause
CPT/HCPCS: 70450; 72125; 99283; 99284; A9270

== ENCOUNTER 2022-12-26 13:44 | Emergency (ER) | payer MEDICARE, OTHER ==
[2022-12-26 14:49] LABS: BASOPHILS % (AUTO) 0.5 %; EOSINOPHILS % (AUTO) 0.2 %; HCT - HEMATOCRIT 33.7 % (37.0-47.0); HGB - HEMOGLOBIN 10.9 g/dL (12.0-16.0); LYMPHOCYTES # (AUTO) 1.5 10^3/uL (1.5-3.5); LYMPHOCYTES % (AUTO) 23.2 %; MEAN CORPUSCULAR HEMOGLOBIN 32.9 pg (27.0-31.0); MEAN CORPUSCULAR HGB CONC 32.3 g/dL (32.0-36.0); MEAN CORPUSCULAR VOLUME 101.8 fL (81.0-99.0); MEAN PLATELET VOLUME 9.2 fL (7.9-10.8); MONOCYTES # (AUTO) 0.4 10^3/uL (0.0-1.0); NEUTROPHILS # (AUTO) 4.5 10^3/uL (1.5-6.6); NEUTROPHILS % (AUTO) 69.9 %; PLT - PLATELET COUNT 201 10^3/uL (130-450); RED BLOOD COUNT 3.31 10^6/uL (4.20-5.40); RED CELL DISTRIBUTION WIDTH 14.1 % (12.0-15.0); WHITE BLOOD COUNT 6.5 x10^3/uL (4.8-10.8)
[2022-12-26 15:01] LABS: ALBUMIN 3.8 g/dL (3.2-5.5); ALBUMIN/GLOBULIN RATIO 1.2 (1.0-2.2); ALKALINE PHOSPHATASE 51 IU/L (42-121); ALT ALANINE AMINOTRANSFERASE < 10 IU/L (10-60); AST ASPARTATE AMINOTRANSFERASE 19 IU/L (10-42); BILIRUBIN,TOTAL 0.4 mg/dL (0.2-1.0); BUN - BLOOD UREA NITROGEN 37 mg/dL (6-20); CALCIUM 8.7 mg/dL (8.5-10.3); CARBON DIOXIDE - CO2 26 mmol/L (21-32); CHLORIDE 107 mmol/L (101-111); CREATININE 1.3 mg/dL (0.4-1.0); GFR - MDRD 39 (>89); GLUCOSE 99 mg/dL (70-100); LIPASE 58 U/L (22-51); POTASSIUM 4.2 mmol/L (3.5-5.0); SODIUM 141 mmol/L (135-145); TOTAL PROTEIN 7.1 g/dL (6.7-8.2)
--- NOTE | 2022-12-26 15:31 | ED Physician Documentation ---
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 Per the who gives most of the history she usually falls about 2 or 3 times a week and uses a cane and/or a walker. Today she is fallen a total of 4 times without injury. says she looks like she was uncoordinated while eating and trying to grab a napkin. The patient reported something funny feeling around her mouth but otherwise has no complaints. No headache. 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 - Present Medications Home Medications: Ambulatory Orders Medication Instructions Recorded Confirmed Cholecalciferol (Vitamin D3) 2,000 unit PO DAILY 08/13/13 08/13/13 [Vitamin D] Wali Red 08/13/13 08/13/13 Montelukast Sodium [Singulair] 10 mg PO DAILY 08/13/13 08/13/13 Amlodipine Besylate [Norvasc] 04/18/20 Carbidopa/Levodopa 25/100 [Sinemet 04/18/20 25 mg/100 mg] Colesevelam HCl [Welchol] 04/18/20 Omeprazole 20 mg PO 04/18/20 Acetaminophen [Tylenol] 500 mg PO ONCE 12/15/22 12/15/22 Cholecalciferol (Vitamin D3) 12/15/22 [Vitamin D3] Hyoscyamine Sulfate [Levsin-Sl] 0.125 mg SL 12/15/22 Memantine [Namenda] 12/15/22 Rasagiline [Azilect] 1 mg PO 12/15/22 12/15/22 Spironolactone [Aldactone] 25 mg PO 12/15/22 hydroCHLOROthiazide 50 mg PO 12/15/22 [Hydrochlorothiazide] - Allergies Allergies/Adverse Reactions: Allergies Allergy/AdvReac Type Severity Reaction Status Date / Time doxycycline Allergy Severe unknown Verified 12/26/22 14:03 niacin Allergy Intermediate unknown Verified 12/26/22 14:03 [From Niaspan Extended-Release] - Social History Does the pt smoke?: No Smoking Status: Never smoker Does the pt drink ETOH?: No Does the pt have substance abuse?: No - Immunizations Immunizations are current?: Yes PD ED PE NORMAL - Vitals Vital signs reviewed: Yes - General General: Other (Minimally verbal, no distress) - HEENT HEENT: PERRL, Other (Difficulty with upward gaze due to her PSP) - Neck Neck: Supple, no meningeal sign, No bony TTP - Cardiac Cardiac: RRR, No murmur - Respiratory Respiratory: No respiratory distress, Clear bilaterally - Abdomen Abdomen: Soft, Non tender - Neuro Neuro: Other (She is minimally verbal, mostly speaks Macedonian Macedonian per the . He says she is at her normal mental status. She has decree strength in the left leg from prior stroke which she says is chronic.) Eye Opening: Spontaneous Motor: Obeys Commands Results - Vitals Vitals: Vital Signs - 24 hr 12/26/22 12/26/22 13:58 17:56 Temperature 36.7 C Heart Rate 66 68 Respiratory 16 12 Rate Blood Pressure 106/57 L 147/83 H O2 Saturation 100 98 Oxygen O2 Source Room air - Labs Labs: Laboratory Tests 12/26/22 12/26/22 12/26/22 14:37 14:37 16:23 WBC 6.5 RBC 3.31 L Hgb 10.9 L Hct 33.7 L MCV 101.8 H MCH 32.9 H MCHC 32.3 RDW 14.1 Plt Count 201 MPV 9.2 Neut # (Auto) 4.5 Lymph # (Auto) 1.5 Emmet # (Auto) 0.4 Eos # (Auto) 0.0 Baso # (Auto) 0.0 Absolute Nucleated RBC 0.00 Nucleated RBC % 0.0 Sodium 141 Potassium 4.2 Chloride 107 Carbon Dioxide 26 Anion Gap 8.0 BUN 37 H Creatinine 1.3 H Estimated GFR (MDRD) 39 L Glucose 99 Calcium 8.7 Total Bilirubin 0.4 AST 19 ALT < 10 L Alkaline Phosphatase 51 Total Protein 7.1 Albumin 3.8 Globulin 3.3 Albumin/Globulin Ratio 1.2 Lipase 58 H Urine Color YELLOW Urine Clarity CLEAR Urine pH 7.0 Ur Specific Mason 1.010 Urine Protein NEGATIVE Urine Glucose (UA) NEGATIVE Urine Ketones NEGATIVE Urine Occult Blood NEGATIVE Urine Nitrite NEGATIVE Urine Bilirubin NEGATIVE Urine Urobilinogen 0.2 (NORMAL) Ur Leukocyte Esterase NEGATIVE Ur Microscopic Review NOT INDICATED Urine Culture Comments NOT INDICATED - Rads (name of study) CTA head and neck unremarkable Relevant Findings:: Final report received, EMP independent interpretation of test PD Medical Decision Making - ED course ED course: CT angiography of the head and neck is unremarkable. CBC notable for modest chronic macrocytic anemia. CMP notable for prerenal azotemia which could be consistent with dehydration. Urinalysis normal. After the administration of IV fluids she was feeling much better and passed a road test here and was back to baseline per the . Departure - Departure Disposition: Home, Self Care Clinical Impression: Weakness, Frequent falls, Dehydration Condition: Good Record reviewed to determine appropriate education?: Yes Instructions: ED Dehydration Comments: Push fluids Return if worse. Followup with your PCP, next available. Discharge Date/Time: 12/26/22 17:56
[2022-12-26] MEDS ORDERED: iohexoL-300 100 ML VIAL ONE (15:38)
[2022-12-26] MEDS ORDERED: iohexoL-300 100 ML VIAL IVP ONE (16:11)
[2022-12-26] MEDS ORDERED: SODIUM CHLORIDE 0.9% 1,000 ML IV STA (16:17)
[2022-12-26 16:29] LABS: BILIRUBIN,URINE NEGATIVE (NEGATIVE); GLUCOSE, URINE (UA) NEGATIVE (NEGATIVE); KETONES,URINE (UA) NEGATIVE (NEGATIVE); LEUKOCYTE ESTERASE, URINE NEGATIVE (NEGATIVE); NITRITE,URINE NEGATIVE (NEGATIVE); OCCULT BLOOD,URINE NEGATIVE (NEGATIVE); PROTEIN,URINE NEGATIVE (NEGATIVE); UROBILINOGEN,URINE 0.2 (NORMAL) E.U./dL (NORMAL)
[2022-12-26 16:31] LABS: CLARITY,URINE CLEAR (CLEAR)
--- NOTE | 2022-12-26 16:35 | CT Report ---
PROCEDURE: ANGIO HEAD W/WO INDICATIONS: freq falls, clumsy CONTRAST: 80ml omni 300 TECHNIQUE: Precontrast 4.5 mm thick angled axial sections acquired from the foramen magnum to the vertex. Afte r the administration of intravenous contrast, 1 mm thick sections acquired through the [place] of [place] is. Postcontrast 4.5 mm thick sections then re-acquired from the foramen magnum to the vertex. 3-di mensional hpfjctm-khtjxxhic-sfslrxqiti (MIP) and/or volume rendering reformats were acquired of the c entral intracranial vasculature. For radiation dose reduction, the following was used: automated ex posure control, adjustment of mA and/or kV according to patient size. COMPARISON: Correlation is made with the accompanying neck CT angiogram, 12/26/2022. Correlation is a lso made with prior head CT, 12/15/2022. FINDINGS: Image quality: Excellent. Anterior circulation: Intracranial internal carotid arteries demonstrate generalized atherosclerotic irregularity and calcification, yet without a flow-limiting stenosis. The flow within the paired an terior cerebral arteries is normal and symmetric. The flow within the middle cerebral arteries is no rmal and symmetric. Incidental note is made of short M1 segments on both sides. The anterior communic ating artery is seen. No aneurysms are seen. Posterior circulation: Visualized portions of the vertebral arteries demonstrate normal caliber, and join to form a normal appearing basilar artery. Flow within the posterior cerebral arteries is norm al and symmetric. No aneurysms are seen. CSF spaces: Ventricles are normal in size and shape. Basal cisterns are patent. No extra-axial flu id collections. Brain: No midline shift. No intracranial bleeds or masses. Hagen-white matter interface appears int act. Skull and face: Calvarium and facial bones appear intact, without suspicious lesions. Sinuses: Visualized sinuses and mastoids are clear. IMPRESSION: No significant intracranial abnormality is seen. No significant intracranial arterial abnormalities are seen. If it would be helpful for clinical management decision making, please consider a dedicated brain MRI (without and with contrast) for further evaluation (assuming that there is no contraindication). Reviewed by: William Sy MD on 12/26/2022 3:34 PM [facility] Approved by: William Sy MD on 12/26/2022 3:34 PM [facility]PES[facility] Station ID: [id number]
--- NOTE | 2022-12-26 16:37 | CT Report ---
PROCEDURE: ANGIO NECK W INDICATIONS: freq falls, clumsy CONTRAST: 80ml omni 300 TECHNIQUE: After the administration of intravenous contrast, 1.5 mm axial sections acquired from the aortic arch to the [place] of [place]. Coronal 3-D maximum intensity projection (MIP) and/or volume rendering ref ormats were then performed. For radiation dose reduction, the following was used: automated exposur e control, adjustment of mA and/or kV according to patient size. COMPARISON: Correlation is made with the accompanying head CT angiogram, 12/26/2021.7 correlation is also made with recent prior cervical spine CT, 12/15/2022. FINDINGS: Image quality: Excellent. Carotid system: The great vessels demonstrate a conventional anatomy as they arise from the aortic a rch. The origins of the common carotid arteries appear patent. The common carotid arteries demonstr ate normal calibers and courses. The bifurcation regions appear normal bilaterally. The internal ca rotid arteries demonstrate normal caliber and course. Posterior circulation: The origins of the vertebral arteries appear patent. The more superior porti ons of the vertebral arteries demonstrate normal course and caliber. The left vertebral artery is dom inant to the right. Soft tissues: Visualized neck soft tissues demonstrate no suspicious abnormalities. The thyroid is normal in size and there are no incidental findings. Bones: No suspicious bony lesions. Visualized cervical spine appears normally aligned. At least m oderate cervical spine degenerative change can be seen, which is worst inferiorly. IMPRESSION: No hemodynamically significant stenosis can be seen within the arteries of the neck. The estimate of stenosis included in the report of the imaging study was calculated using the NASCET method Reviewed by: William Sy MD on 12/26/2022 3:35 PM [facility] Approved by: William Sy MD on 12/26/2022 3:35 PM [facility] Station ID: [id number]
[2022-12-26 17:57] VITALS: BP 147/83
== END 2022-12-26 17:56 | disposition home or self-care (01) ==
LOC: ED 13:44
DX: R53.1 Weakness (principal); E86.0 Dehydration; R29.6 Repeated falls
CPT/HCPCS: 36415; 70496; 70498; 80053; 81003; 83690; 85025; 96360; 99283; 99284; Q9967; 81001; 87086

== ENCOUNTER 2023-05-30 16:11 | Emergency (ER) | payer MEDICARE, OTHER ==
--- NOTE | 2023-05-30 16:39 | ED Physician Documentation ---
PD HPI HEAD INJURY - Stated complaint Stated Complaint: FALL/HIT HEAD - Chief complaint Chief Complaint: Trauma Hd/Nk - History obtained from History obtained from: Patient, Family (spouse) - History of Present Illness Mechanism of head injury: Fell ( states patient was in kitchen prepping food without cane nor walker and fell backward, striking head on corner of fridge. No LOC. Bleeding from scalp until applied wrap with wilson bandage. No other apparent injury.) Where head injury occurred: Home Timing - onset: How many hours ago (1), Today Location of injury: Back Quality of pain: Aching Associated symptoms: No: LOC, AMS, Nausea / vomiting Contributing factors: No: Anticoagulated Similar symptoms before: Diagnosis (Parkinsons with balance problems and uses cane or walker most of the time. Has had falls more often recently. 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 - Present Medications Home Medications: Ambulatory Orders Medication Instructions Recorded Confirmed Cholecalciferol (Vitamin D3) 2,000 unit PO DAILY 08/13/13 08/13/13 [Vitamin D] Wali Red 08/13/13 08/13/13 Montelukast Sodium [Singulair] 10 mg PO DAILY 08/13/13 08/13/13 Amlodipine Besylate [Norvasc] 04/18/20 Carbidopa/Levodopa 25/100 [Sinemet 04/18/20 25 mg/100 mg] Colesevelam HCl [Welchol] 04/18/20 Omeprazole 20 mg PO 04/18/20 Acetaminophen [Tylenol] 500 mg PO ONCE 12/15/22 12/15/22 Cholecalciferol (Vitamin D3) 12/15/22 [Vitamin D3] Hyoscyamine Sulfate [Levsin-Sl] 0.125 mg SL 12/15/22 Memantine [Namenda] 12/15/22 Rasagiline [Azilect] 1 mg PO 12/15/22 12/15/22 Spironolactone [Aldactone] 25 mg PO 12/15/22 hydroCHLOROthiazide 50 mg PO 12/15/22 [Hydrochlorothiazide] - Allergies Allergies/Adverse Reactions: Allergies Allergy/AdvReac Type Severity Reaction Status Date / Time doxycycline Allergy Severe unknown Verified 05/30/23 22:08 niacin Allergy Intermediate unknown Verified 05/30/23 22:08 [From Niaspan Extended-Release] - Social History Does the pt smoke?: No Smoking Status: Never smoker Does the pt drink ETOH?: No Does the pt have substance abuse?: No - Immunizations Immunizations are current?: Yes PD ED PE NORMAL - Vitals Vital signs reviewed: Yes - General General: Alert and oriented X 3, No acute distress, Well developed/nourished, Other (has facecloth on back of scalp held with wilson wrap. No apparent active bleeding. ) - HEENT HEENT: PERRL, EOMI, Other (prior yellow to felix ecchymosis with some swelling right forehead and periorbital area. Not tender. Current injury is left occiput, 3 cm laceration to fatty tissue. Minimal bleeding currently. No FB. Mild tender. ) - Neck Neck: Supple, no meningeal sign, No bony TTP - Cardiac Cardiac: RRR, No murmur - Respiratory Respiratory: Clear bilaterally - Derm Derm: Normal color, Warm and dry - Extremities Extremities: Normal ROM s pain - Neuro Neuro: Alert and oriented X 3, No motor deficit, No sensory deficit Results - Vitals Vitals: Vital Signs - 24 hr 05/30/23 05/30/23 16:16 18:55 Temperature 36.3 C L 36.5 C Heart Rate 76 72 Respiratory 16 16 Rate Blood Pressure 121/72 120/70 O2 Saturation 96 98 Oxygen O2 Source Room air - Rads (name of study) head CT Relevant Findings:: Prelim report reviewed (n o ICH), EMP independent interpretation of test facial CT Relevant Findings:: Prelim report reviewed (no fractures), EMP independent interpretation of test Procedures - Laceration (location) left occiput Length in cm: 3 Wound type: Curved, Into subcut fat, Clean Anesthesia: Lidocaine 1% with epi Wound preparation: Irrigated copiously NS, Wound explored, To the base Skin layer closure: [place], Interrupted Other: Patient tolerated well, No complications PD Medical Decision Making - ED course Complexity details: reviewed results, considered differential (seems mechanical fall due to balance problems related to Parkinsons. does not always use cane or walker per . No concussive symptoms.), d/w patient, d/w family () Departure - Departure Disposition: 01 Home, Self Care Clinical Impression: Fall from slip, trip, or stumble, Balance problem, Scalp laceration Condition: Stable Record reviewed to determine appropriate education?: Yes Instructions: ED Laceration All Follow-Up: Romy Singh MD [Primary Care Provider] - Comments: We did do a CT scan of your head and face. No signs of fractures nor bleeding within the brain vault. Your scalp laceration was closed with yoli. These will need removing in about 9 or 10 days. It is okay to wash and shower. Clean off the wound twice a day with soap and water, or peroxide and water. Apply some antibiotic ointment to it to keep it moist. Also to watch for signs of infection such as purulence, redness or increasing pain. Return to your primary care or the ER at the specified time for suture removal. Tylenol every 4-6 hours as needed for pain. Continue your other usual medicines. Forms: PCP List Discharge Date/Time: 05/30/23 18:55
[2023-05-30] MEDS: LIDOCAINE 1%-EPI 1:100000 20 ML MDV SUBQ STA (17:43)
[2023-05-30 19:07] VITALS: BP 120/70; O2SAT 98
--- NOTE | 2023-05-30 19:18 | CT Report ---
PROCEDURE: HEAD WO INDICATIONS: fall, struck back of head TECHNIQUE: Noncontrast 4.5 mm thick angled axial sections acquired from the foramen magnum to the vertex. For r adiation dose reduction, the following was used: automated exposure control, adjustment of mA and/or kV according to patient size. COMPARISON: Prior head CT examinations, 12/26/2022, 12/15/2022, 10/28/2018, 11/13/2016. Correlation is als o made with the accompanying maxillofacial CT. FINDINGS: Image quality: Excellent. CSF spaces: Basal cisterns are patent. No extra-axial fluid collections. Ventricles are normal in size and shape. Brain: No midline shift. No intracranial masses or hemorrhage. Hagen-white matter interface is norm al. Skull and face: There is a scalp hematoma seen involving the right superolateral periorbital region. No associated fracture is seen within this area. Calvarium and visualized facial bones are intact, w ithout suspicious lesions. Sinuses: Visualized sinuses and mastoids are clear. IMPRESSION: Right superolateral periorbital scalp hematoma seen. No associated fracture is seen. No intracranial hemorrhage is seen. No significant intracranial abnormality is seen. Reviewed by: William Sy MD on 05/30/2023 6:17 PM [facility] Approved by: William Sy MD on 05/30/2023 6:17 PM [facility] Station ID: [id number]
--- NOTE | 2023-05-30 19:19 | CT Report ---
PROCEDURE: MAXILLOFACIAL WO INDICATIONS: fell, struck right periorbital TECHNIQUE: Noncontrast 1.5 mm thick axial images acquired from the mandible through the frontal sinuses, with co rylie and sagittal reformatting. For radiation dose reduction, the following was used: automated ex posure control, adjustment of mA and/or kV according to patient size. COMPARISON: Correlation is made with the accompanying head CT. FINDINGS: Image quality: There is artifact associated with the metallic hardware. Bones and teeth: Orbital swift are intact. Sinus swift show no fracture or deformity. Nasal bones and septum are intact. Visualized portions of the mandible demonstrate no fractures or subluxation. Zygomatic arches are intact. Pterygoid plates are intact. Visualized portions of the skull base an d auditory canals are intact. Sinuses: Paranasal sinuses are aerated, without fluid levels, mucosal thickening, or mucoceles. [place] air cells are aerated. Soft tissues: There is a scalp hematoma seen involving the right superolateral periorbital region. Vascular: Visualized vascular structures appear normal in the absence of contrast. Bony vascular fo ramina and canals are intact. IMPRESSION: Scalp hematoma seen involving the right superolateral periorbital region. No associated fracture is seen at this site. No displaced fractures are seen elsewhere. Reviewed by: William Sy MD on 05/30/2023 6:18 PM [facility] Approved by: William Sy MD on 05/30/2023 6:18 PM [facility] Station ID: [id number]
== END 2023-05-30 18:55 | disposition home or self-care (01) ==
LOC: ED 16:11
DX: S01.01XA Laceration without foreign body of scalp, initial encounter (principal); W18.30XA Fall on same level, unspecified, initial encounter; Y93.G1 Activity, food preparation and clean up; Y92.89 Other specified places as the place of occurrence of the external cause; G20 Parkinson's disease; I10 Essential (primary) hypertension; E78.00 Pure hypercholesterolemia, unspecified; Z79.899 Other long term (current) drug therapy
CPT/HCPCS: 12002; 99284

== ENCOUNTER 2023-05-30 21:45 | Outpatient (CLI) | payer MEDICARE, OTHER | END 2023-05-30 21:46 | disposition critical access hospital (66) | LOC: EMS 21:45 | DX: S01.81XA Laceration without foreign body of other part of head, initial encounter (principal); W01.198A Fall on same level from slipping, tripping and stumbling with subsequent striking against other object, initial encounter; Y92.008 Other place in unspecified non-institutional (private) residence as the place of occurrence of the external cause | CPT/HCPCS: A0425; A0429 ==

== ENCOUNTER 2023-05-30 22:04 | Emergency (ER) | payer MEDICARE, OTHER ==
[2023-05-30] MEDS ORDERED: SODIUM CHLORIDE 0.9% 1,000 ML IV STA (22:44)
[2023-05-30 22:59] LABS: BASOPHILS % (AUTO) 0.4 %; EOSINOPHILS % (AUTO) 0.1 %; HGB - HEMOGLOBIN 11.3 g/dL (12.0-16.0); LYMPHOCYTES # (AUTO) 1.2 10^3/uL (1.5-3.5); MEAN CORPUSCULAR HEMOGLOBIN 32.7 pg (27.0-31.0); MEAN CORPUSCULAR HGB CONC 32.3 g/dL (32.0-36.0); MEAN CORPUSCULAR VOLUME 101.2 fL (81.0-99.0); MEAN PLATELET VOLUME 9.4 fL (7.9-10.8); MONOCYTES # (AUTO) 0.6 10^3/uL (0.0-1.0); MONOCYTES % (AUTO) 7.6 %; NEUTROPHILS # (AUTO) 5.5 10^3/uL (1.5-6.6); NEUTROPHILS % (AUTO) 75.5 %; PLT - PLATELET COUNT 251 10^3/uL (130-450); RED BLOOD COUNT 3.46 10^6/uL (4.20-5.40); RED CELL DISTRIBUTION WIDTH 13.9 % (12.0-15.0); WHITE BLOOD COUNT 7.3 x10^3/uL (4.8-10.8)
[2023-05-30 23:24] LABS: ALBUMIN/GLOBULIN RATIO 1.2 (1.0-2.2); BILIRUBIN,TOTAL 0.4 mg/dL (0.2-1.0); CALCIUM 9.3 mg/dL (8.5-10.3); CREATININE 1.4 mg/dL (0.6-1.3); POTASSIUM 3.8 mmol/L (3.5-4.5); TOTAL PROTEIN 7.3 g/dL (6.4-8.9)
[2023-05-30 23:27] LABS: BILIRUBIN,URINE NEGATIVE (NEGATIVE); GLUCOSE, URINE (UA) NEGATIVE (NEGATIVE); KETONES,URINE (UA) NEGATIVE (NEGATIVE); LEUKOCYTE ESTERASE, URINE SMALL (NEGATIVE); NITRITE,URINE NEGATIVE (NEGATIVE); OCCULT BLOOD,URINE NEGATIVE (NEGATIVE); PH,URINE 6.5 PH (5.0-7.5); PROTEIN,URINE NEGATIVE (NEGATIVE); UROBILINOGEN,URINE 1 (NORMAL) E.U./dL (NORMAL)
[2023-05-30 23:37] LABS: CLARITY,URINE CLEAR (CLEAR)
[2023-05-30 23:53] LABS: BACTERIA,URINE Rare /HPF (None Seen); RBC,URINE 0-5 /HPF (0-5); SQUAMOUS EPITHELIAL CELL,UR RARE Squamous (<= Few)
[2023-05-31] MEDS ORDERED: LIDOCAINE 1% 2 ML VIAL ONE (00:33)
--- NOTE | 2023-05-31 00:55 | ED Physician Documentation ---
PD HPI HEAD INJURY - Stated complaint Stated Complaint: GLF - Chief complaint Chief Complaint: Laceration - History obtained from History obtained from: Patient, Family - History of Present Illness Mechanism of head injury: Fell Where head injury occurred: Home Timing - onset: Today Location of injury: Back Quality of pain: Dull Associated symptoms: Other (bleeding from prior laceration repair site). No: LOC, AMS, Amnesia, Nausea / vomiting, Neck pain, Paresthesias, Seizures, Ear drainage, Nasal drainage Symptoms improve with: Other (pressure dressing) Symptoms worsen with: Palpation Contributing factors: No: Anticoagulated, Intoxicated Similar symptoms before: Diagnosis (scalp laceration) Recently seen: Emergency Dept - Additional information Additional information: 83-year-old Maribell Bassett has a history of Parkinson's disease and she has had multiple falls. She fell in her home earlier today was seen in the emergency department and had a laceration to her occipital scalp repaired with go. At that time she had CT scanning done of the head which did not demonstrate any evidence of internal hemorrhage. The patient went home she was quite unsteady on her feet and collapsed again at home. She did not have loss of consciousness she did strike the back of her head again and has bleeding that was controlled with direct pressure in route to the hospital by EMS. 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 - Present Medications Home Medications: Ambulatory Orders Medication Instructions Recorded Confirmed Cholecalciferol (Vitamin D3) 2,000 unit PO DAILY 08/13/13 05/30/23 [Vitamin D] Wali Red 500 mg PO DAILY 08/13/13 05/30/23 Montelukast Sodium [Singulair] 10 mg PO DAILY 08/13/13 05/30/23 Carbidopa/Levodopa 25/100 [Sinemet 25 - 100 mg QID 04/18/20 05/30/23 25 mg/100 mg] Acetaminophen [Tylenol] 500 mg PO BID 12/15/22 05/30/23 Hyoscyamine Sulfate [Levsin-Sl] 0.125 mg SL Q6HR 12/15/22 05/30/23 Memantine [Namenda] 5 mg PO DAILY 12/15/22 05/30/23 Rasagiline [Azilect] 0.5 mg PO DAILY 12/15/22 05/30/23 Spironolactone [Aldactone] 25 mg PO DAILY 12/15/22 05/30/23 hydroCHLOROthiazide 25 mg PO DAILY 12/15/22 05/30/23 [Hydrochlorothiazide] Aspirin/Dipyridamole [Aggrenox] 25 - 200 mg PO BID 05/30/23 05/30/23 Famotidine [Pepcid] 20 mg PO DAILY 05/30/23 05/30/23 Gabapentin [Neurontin] 100 mg PO Q4HR 05/30/23 05/30/23 Melatonin/Pyridoxine [Melatonin 5 5 mg PO DAILY PM 05/30/23 05/30/23 mg Tablet] Metoprolol Succinate [Toprol Xl] 25 mg PO DAILY 05/30/23 05/30/23 Pantoprazole [Protonix] 40 mg PO DAILY 05/30/23 05/30/23 Simvastatin [Zocor] 40 mg PO DAILY 05/30/23 05/30/23 traZODone [Desyrel] 100 mg PO DAILY PM 05/30/23 05/30/23 - Allergies Allergies/Adverse Reactions: Allergies Allergy/AdvReac Type Severity Reaction Status Date / Time doxycycline Allergy Severe unknown Verified 05/30/23 22:08 niacin Allergy Intermediate unknown Verified 05/30/23 22:08 [From [facility] Extended-Release] - Social History Does the pt smoke?: No Smoking Status: Never smoker Does the pt drink ETOH?: No Does the pt have substance abuse?: No - Immunizations Immunizations are current?: Yes - POLST Patient has POLST: No PD ED PE NORMAL - Vitals Vital signs reviewed: Yes - General General: Alert and oriented X 3, No acute distress, Well developed/nourished, Other (Elderly female with a ecchymosis to the right periorbital tissues and a bandage over her head she speaks quietly and is less interactive and according to her this is her normal status unchanged from earlier) - HEENT HEENT: PERRL, EOMI, Other (ecchymosis to the right charli-orbital tissues 6cm V shaped laceration half new and half old with go pushed into the laceration. ) - Neck Neck: Supple, no meningeal sign, No bony TTP - Cardiac Cardiac: RRR, No murmur - Respiratory Respiratory: No respiratory distress, Clear bilaterally - Abdomen Abdomen: Soft, Non tender - Derm Derm: Normal color, Warm and dry, No rash - Extremities Extremities: No deformity, Other (pitting edema to the LE R> L chronic and on diuretic. ) - Neuro Neuro: Alert and oriented X 3, pigs feet cleaner 2-12 intact, No motor deficit, No sensory deficit, Normal speech Eye Opening: Spontaneous Motor: Obeys Commands Verbal: Oriented GCS Score: 15 - Psych Psych: Other (mood is withdrawn and affect is flat. ) Results - Vitals Vitals: Vital Signs - 24 hr 05/30/23 05/30/23 05/31/23 22:08 22:11 00:11 Temperature 36.7 C 36.7 C Heart Rate 84 84 77 Respiratory 16 16 18 Rate Blood Pressure 150/88 H 150/88 H 170/92 H O2 Saturation 99 99 98 05/31/23 01:05 Temperature Heart Rate 76 Respiratory 16 Rate Blood Pressure 164/87 H O2 Saturation 98 Oxygen O2 Source Room air - Labs Labs: Laboratory Tests 05/30/23 05/30/23 05/30/23 22:51 22:51 23:21 WBC 7.3 RBC 3.46 L Hgb 11.3 L Hct 35.0 L MCV 101.2 H MCH 32.7 H MCHC 32.3 RDW 13.9 Plt Count 251 MPV 9.4 Neut # (Auto) 5.5 Lymph # (Auto) 1.2 L [place] # (Auto) 0.6 Eos # (Auto) 0.0 Baso # (Auto) 0.0 Absolute Nucleated RBC 0.00 Nucleated RBC % 0.0 Sodium 140 Potassium 3.8 Chloride 104 Carbon Dioxide 28 Anion Gap 8.0 BUN 30 H Creatinine 1.4 H Estimated GFR (MDRD) 36 L Glucose 144 H Calcium 9.3 Total Bilirubin 0.4 AST 17 ALT 9 L Alkaline Phosphatase 134 H Total Protein 7.3 Albumin 4.0 Globulin 3.3 Albumin/Globulin Ratio 1.2 Lipase 893 H Urine Color YELLOW Urine Clarity CLEAR Urine pH 6.5 Ur Specific [place] 1.010 Urine Protein NEGATIVE Urine Glucose (UA) NEGATIVE Urine Ketones NEGATIVE Urine Occult Blood NEGATIVE Urine Nitrite NEGATIVE Urine Bilirubin NEGATIVE Urine Urobilinogen 1 (NORMAL) Ur Leukocyte Esterase SMALL H Urine RBC 0-5 Urine WBC 4-5 Ur Squamous Epith Cells RARE Squamous Urine Bacteria Rare Ur Microscopic Review INDICATED Urine Culture Comments INDICATED Procedures - Laceration (location) occiput Length in cm: 6 Wound type: Stellate, Into subcut fat, Clean Neurovascular status: Sensory intact, Motor intact, Vascular intact Anesthesia: Lidocaine 1% Wound preparation: Hibiclens, Irrigated copiously NS, Wound explored, To the base Skin layer closure: Go, Other (required removal of some go cleaning and placement of new go .) Other: Patient tolerated well, No complications, Neurovascular intact, Dressing applied - IVC sono (time) 2229 Bedside IVC sono: IVC measures (cm), IVC collapsed c insp (cm) (complete), Dehydration (est 1+ Liter deficit) PD Medical Decision Making - ED course Complexity details: reviewed results, re-evaluated patient, considered differential, d/w patient, d/w family ED course: 83-year-old female with a laceration to the occipital scalp earlier in the day has fallen again and has that laceration extended in a V like shape. This wound is cleaned extensively go are removed and new go are replaced. We able to get control of bleeding. She is found to be dehydrated on interrogation of the inferior vena cava with POCUS and she is administered saline as well. Departure - Departure Disposition: 01 Home, Self Care Clinical Impression: Dehydration Scalp laceration Qualifiers: Encounter type: subsequent encounter Qualified Code(s): S01.01XD - Laceration without foreign body of scalp, subsequent encounter Fall from slip, trip, or stumble Qualifiers: Encounter type: subsequent encounter Qualified Code(s): W01.0XXD - Fall on same level from slipping, tripping and stumbling without subsequent striking against object, subsequent encounter Condition: Stable Instructions: ED Dehydration, ED Laceration Scalp Stitch Or Stap Follow-Up: Romy Singh MD [Primary Care Provider] - Comments: Bojorquez, today it looks like you have fallen twice and lacerated your scalp. On the second visit there was a second laceration to your scalp. These have been stapled and the go will need to be removed in 10 days. A follow-up with Dr. Romy Singh or here in the emergency department is indicated for this. T tierra we found that you were dehydrated and this was significant enough that I suspect this may be why you are having trouble with your falling. The recommendation for fluid intake for an adult is 2 quarts per day. You are taking a water pill in addition. You are balancing water retention with hydration may require some follow-up. Follow-up with Dr. Romy Singh. Discharge Date/Time: 05/31/23 01:06
[2023-05-31] MEDS ORDERED: LIDOCAINE 1% 2 ML VIAL SUBQ STA (00:56)
[2023-05-31 01:13] VITALS: BP 164/87; O2SAT 98
--- NOTE | 2023-06-03 18:39 | ED Physician Documentation ---
ED Addendum - Addendum Addendum: 06/03/23 18:38 Placing a note here so its visible as well: The patient's urine culture came back showing E. coli at 10-50,000 CFU's. She was not given any prescription at the time. It seems reasonable to treat it and I will go with cephalexin and 3 times daily for a week. The patient was here in the ER again today with another fall and so she was started on Rocephin and I wrote a prescription as part of that chart. This will be reflected in the note from today as well.
== END 2023-05-31 01:06 | disposition home or self-care (01) ==
LOC: EDUNIT# → ED 22:04
DX: S01.01XA Laceration without foreign body of scalp, initial encounter (principal); W19.XXXA Unspecified fall, initial encounter; E86.0 Dehydration; R60.0 Localized edema; G20 Parkinson's disease; Z79.899 Other long term (current) drug therapy; R82.71 Bacteriuria
CPT/HCPCS: 12002; 36415; 80053; 81001; 81003; 83690; 85025; 87086; 87181; 99283

== ENCOUNTER 2023-08-02 11:24 | Outpatient (CLI) | payer MEDICARE, OTHER | END 2023-08-02 23:59 | disposition EMS.NT | LOC: EMS 11:24 | DX: Z03.89 Encounter for observation for other suspected diseases and conditions ruled out (principal) ==

== ENCOUNTER 2023-09-16 12:30 | Outpatient (CLI) | payer MEDICARE, OTHER ==
--- NOTE | 2023-09-17 12:52 | Mammography Report ---
BILATERAL DIGITAL DIAGNOSTIC MAMMOGRAM 3D/2D: 09/16/2023 CLINICAL: Patient returns for bilateral 12 month follow up. No abnormal lymph nodes are seen in the axilla. Comparison is made to exams dated: 09/03/2022 mammog suzi, 08/25/2022 mammogram, 01/20/2019 mammogram, 12/13/2017 mammogram, and 08/07/2015 mammogram - [facility]. There are scattered areas of fibroglandular density in both breasts (category b / 25%-50% glandular t issue). There is suboptimal positioning due to patient factors and the best possible images were obtained. There is again seen left greater than right diffuse skin thickening and parenchymal edema, unchanged since 08/25/2022. No significant masses, calcifications, or other findings are seen in either breast. IMPRESSION: BENIGN Left greater than right breast diffuse skin thickening and parenchymal edema, stable since 08/25/2022 . Findings are benign and are most consistent with a systemic process such as congestive heart failur e. No mammographic evidence of malignancy. A 1 year screening mammogram is recommended. Findings and recommendations were conveyed to the patient during today's evaluation. This exam was interpreted at Station ID: [id number]. NOTE: For mammograms, a report in lay terms will be sent to the patient. Approximately 15% of breast malignancies will not be visualized mammographically. In the management of a palpable breast mass, a negative mammogram must not discourage biopsy of a clinically suspicious lesion. Electronically Signed By: Mariangel Blanton M.D., PH.D eb/:09/16/2023 13:42:54 ACR BI-RADS Category 2: Benign Finding(s) 3342F PARENCHYMAL PATTERN: (A) - The breast(s) demonstrate(s) scattered fibroglandular densities. BI-RADS CATEGORY: (2) - 2 Mammogram [id number] 1 year screening LATERALITY: (B)
== END 2023-09-16 12:31 | disposition home or self-care (01) ==
LOC: DI 12:30
PROVIDERS: ATTEND Internal Medicine
DX: R92.8 Other abnormal and inconclusive findings on diagnostic imaging of breast (principal); R92.323 Mammographic fibroglandular density, bilateral breasts

== ENCOUNTER 2023-10-01 16:19 | Outpatient (CLI) | payer MEDICARE, OTHER | END 2023-10-01 23:59 | disposition EMS.NT | LOC: EMS 16:19 | DX: Z03.89 Encounter for observation for other suspected diseases and conditions ruled out (principal) ==

== ENCOUNTER 2023-10-27 16:36 | Outpatient (CLI) | payer MEDICARE, OTHER ==
--- NOTE | 2023-10-28 15:29 | XRAY Report ---
PROCEDURE: Cervical Spine 2-3V INDICATIONS: DORSALGIA TECHNIQUE: 3 view(s) of the cervical spine were acquired. COMPARISON: CT cervical spine 07/10/2023 FINDINGS: Bones: No fractures or dislocations to the C6-7 level. The lateral masses of C1 appear intact on th e odontoid view. No suspicious bony lesions. There is trace retrolisthesis of C4 on C5. Degenerativ e disc space narrowing is more prominent at C5-6 and C6-7. Anterior osteophytes are also present. Soft tissues: No prevertebral soft tissue swelling. IMPRESSION: Degenerative changes most prominent at C5-6 and C6-7. Lower cervical spine is not well seen secondary to positioning. Reviewed by: Oliva Loera MD on 10/28/2023 3:28 PM PST Approved by: Oliva Loera MD on 10/28/2023 3:28 PM [facility] Station ID: [id number]
--- NOTE | 2023-10-28 17:32 | XRAY Report ---
PROCEDURE: Lumbar Spine 2-3V INDICATIONS: LOW BACK PX TECHNIQUE: 3 views of the lumbar spine were acquired. COMPARISON: X-ray chest 09/29/2019. FINDINGS: Bones: Suggestion of osteopenia. It is difficult to count the number of vertebra present due to osteo penia and short vertebral at T12? Severe wedge compression fracture of L1 is seen with approximately 50% height loss anteriorly with sclerotic border superiorly. Diffuse degenerative changes of all the vertebral levels are noted especially L5-S1. Soft tissues: Overlying bowel gas pattern is normal. IMPRESSION: Anterior wedge compression of deformity of L1 of unknown chronicity; however it was not definitely se en on prior x-ray chest on 09/29/2022. Reviewed by: Mina Escobar MD on 10/28/2023 5:30 PM PST Approved by: Mina Escobar MD on 10/28/2023 5:30 PM PST Station ID: [id number]
--- NOTE | 2023-10-28 17:34 | XRAY Report ---
PROCEDURE: Thoracic Spine 2V INDICATIONS: LOW BACK PAIN, DORSALGIA TECHNIQUE: 2 views of the thoracic spine were acquired. COMPARISON: X-ray chest 09/29/2019. FINDINGS: Bones: Anterior wedge compression deformity of L1 again noted.. There was no suspicious bony lesions. It is difficult to comment the number of ribs due to osteopenia and irregular ribs in the lower thor acic/upper lumbar level. Soft tissues: Limited evaluation IMPRESSION: Anterior wedge compression of deformity of L1 of unknown chronicity; however it was not seen on prior x-ray chest on 09/29/2022. Reviewed by: Mina Escobar MD on 10/28/2023 5:32 PM PST Approved by: Mina Escobar MD on 10/28/2023 5:32 PM PST Station ID: [id number]
== END 2023-10-27 16:37 | disposition home or self-care (01) ==
LOC: DI 16:36
PROVIDERS: ATTEND Internal Medicine
DX: M47.812 Spondylosis without myelopathy or radiculopathy, cervical region (principal); M48.56XA Collapsed vertebra, not elsewhere classified, lumbar region, initial encounter for fracture; M47.816 Spondylosis without myelopathy or radiculopathy, lumbar region; M47.817 Spondylosis without myelopathy or radiculopathy, lumbosacral region; M85.88 Other specified disorders of bone density and structure, other site

== ENCOUNTER 2023-11-23 11:26 | Outpatient (CLI) | payer MEDICARE, OTHER ==
--- NOTE | 2023-11-23 12:03 | XRAY Report ---
PROCEDURE: Wrist 3+V LT INDICATIONS: LEFT ARM PAIN TECHNIQUE: 3 views of the wrist were acquired. COMPARISON: None. FINDINGS: Bones: Mildly displaced and impacted comminuted fracture distal radius is present with articular adalid face extension to the radiocarpal joint. No suspicious bony lesions. Soft tissues: No suspicious soft tissue calcifications or masses. IMPRESSION: Distal radial fracture. Reviewed by: Gabriele Robbins MD on 11/23/2023 12:02 PM PDT Approved by: Gabriele Robbins MD on 11/23/2023 12:02 PM PDT Station ID: [id number]
--- NOTE | 2023-11-23 12:03 | XRAY Report ---
PROCEDURE: Hand 3+V LT INDICATIONS: LEFT ARM PAIN TECHNIQUE: 3 views of the hand(s) acquired. COMPARISON: None. FINDINGS: Bones: Mildly displaced impacted fracture of the distal radius with articular surface extension to t he radial carpal joint. No suspicious bony lesions. Soft tissues: No suspicious soft tissue calcifications or masses. IMPRESSION: Distal radial fracture. Reviewed by: Gabriele Robbins MD on 11/23/2023 12:02 PM PDT Approved by: Gabriele Robbins MD on 11/23/2023 12:02 PM PDT Station ID: [id number]
== END 2023-11-23 11:27 | disposition home or self-care (01) ==
LOC: DI 11:26
PROVIDERS: ATTEND Internal Medicine
DX: S52.502A Unspecified fracture of the lower end of left radius, initial encounter for closed fracture (principal)